=== PATIENT | male | born 1975 | race Caucasian/White ===

== ENCOUNTER 2017-06-01 19:40 | Emergency (ER) | payer OTHER, MEDICAID ==
[~2017-06-01] VITALS: Ht 180.3 cm; Wt 107.0 kg
[~2017-06-01 19:40] MED LIST: ASPIR-LOW81 MG PO; CARDIZEM CD 12120 MG OR; LORTAB 5/500 501 TAB PO; METOPROLOL25 MG PO; NOMEDS
--- NOTE | 2017-06-01 20:30 | Urgent Treatment Center Report ---
History of Present Issue Date/Time Seen by Provider 06/01/172014 Visit Reason Pt arrived:Walked Presenting Problem:PT STATES WHILE HE WAS AT WORK, TWO STEEL SLABS FELL ON HIS RIGHT SPICER SCRAPING IT AT 1430 Location if Accident:Work Onset of symptoms date/time:06/01/1705/10/1430 or onset unknown for: Have you (or family members/close friends) recently traveled outside the [place]? N If Yes, where/when: Have you had exposure to infectious disease within the past month? TB? Other? Specify: c/o right spicer pain. reports while at work today two steel metal roof frames fell hitting bilateral knees and sliding down right anterior spicer. Reports abrasion to right spicer. Denies leg being trapped under frame. "I remained standing the entire time. The edge just slid down my leg". No treatment prior to arrival. Has not irrigated or cleaned wound. Last tetanus approx 6 years ago. Has discussed injury with HR. Not sure if drug screen is required but wants one "just in case". Aware if work doesn't cover cost, he may be responsible and they are typically several hundred dollars. Pt states + understanding and wants the drug screen. Source patient Exam Limitations no limitations ALLERGIES Coded Allergies: No Known Allergies (04/15/17) Home Medications Active Scripts Metoprolol Tartrate (Metoprolol) 25 MG PO BID #180 TAB Ref 1 Prov: 03/03/17 History Medical History General CAD? No Angina: No [place]: No Hypertension? Yes Hyperlipidemia? No CHF? No DVT? No PE? No COPD? No Asthma? Yes Anemia? No GERD? Yes Gastric ulcers? No GI Bleed? No Hernia? No Thyroid Problems? No Hypothyroidism? No CVA? No Seizures? No Diabetes? No Renal Insuffiency? No UTI? No Stones? No BPH? No GB Disease: No Nephritic Syndrome? No Asplenia? No Hepatitis? No Sickle Cell Disease? No Arthritis? No Migraines? No Cataracts? No Glaucoma? No MRSA? No HIV? No TB? No Anxiety? No Depression? No Cancer? No More? Yes Additional hx: AFIB Immunization HX DT/Tetanus 5-10 Years Ago Pneumonia Refuses Surgical Hx Previous Surgery?Y Appendix CARDIAC CATH/ABLATION Social History Smoking Hx Smoker: Never Smoker Tobacco: No Packs/day N/A Alcohol Alcohol: No Review of Systems All Other Systems Reviewed and Negative Constitutional denies fever, denies weakness Musculoskeletal denies joint pain, denies joint swelling, denies muscle pain, other (leg pain "only at the abrasion) Skin see HPI, change in color (bruising left knee also) Psychiatric/Neurological denies numbness, denies tingling Physical Exam Vital Signs Vital Signs Date Time Temp Pulse Resp B/P Pulse O2 O2 Flow FiO2 Ox Delivery Rate 06/01 2002 98.2 98 18 149/97 97 General Appearance normal appearance, no apparent distress Respiratory Status No: respiratory distress. Cardiovascular no peripheral edema Peripheral Pulses Pulses normal Yes (DP/PT) Back gait abnormality (slight limp favoring right) Extremities normal inspection (astrid ankles and feet), tenderness right anterior spicer surrounding abrasion only, no tenderness astrid knees, astrid ankles, astrid feet or left lower leg, normal ROM astrid knees and ankles Strength 5 Lower Ext (L), 5 Lower Ext (R) Neurologic alert, no motor/sensory deficits Skin ecchymosis left anterior knee, approx 1cm wide x 8-10cm long abrasion right anterior mid spicer Medical Decision Making LABS/Meds/Orders Pt receiving controlled substance in ED? No Results/Orders Current Medication Orders Sig/Lia Start time Last Medication Dose Route Stop Time Status Admin Diphtheria/Pertussis/ 0 .STK-MED ONE 06/01 2116 DC Tetanus Vacc IM Bacitracin Zinc 1 INCH ONCE ONE 06/01 2115 CAN TP 06/01 2116 Diphtheria/Pertussis/ 0.5 ML ONCE ONE 06/01 2115 DC 06/01 Tetanus Vacc IM 06/01 Multi-Ingredient 1 UDP ONCE ONE 06/01 2115 DC 06/01 Ointment TP 06/01 Multi-Ingredient 0 .STK-MED ONE 06/01 2110 DC Ointment TP Orders Procedure Date/time Status WOUND CARE PER NURSE 06/01 2109 Active LOWER LEG-RT 06/01 2014 Active XRAY/CT/US XRAY/CT/US XRAY leg (right) XR interpretation by reviewed by me Xray Results normal/NAD Departure Departure Time of Disposition 2119 Disposition DC Home or Self Care(routine) Clinical Impression Primary Impression: Abrasion, right lower leg, initial encounter Secondary Impressions: Contusion of left knee Qualifiers: Encounter type: initial encounter Qualified Code: S80.02XA - Contusion of left knee, initial encounter Need for Tdap vaccination Work related injury Condition STABLE Referrals Leanne Joyner MD (Family) Sunday for any new, worsening or persistant symptoms. Return to ER/UTC for new or worsening symptoms. Patient Instructions DI for Abrasion, DI for Contusion, Tetanus, Diphtheria, Pertussis (Tdap) Vaccine Additional Instructions * Monitor closely. Outlined redness so that you can monitor easier. FU immediately for new or worsening symptoms ( including but not limited to redness , swelling, red streaking, fever, chills). * Clean with mild soap and water * antibx ointment 2-3x/day * open to air at home, covered if outside or in public * YOU HAD A TDAP (TETANUS/PERTUSSIS) VACCINE TODAY. YOU WILL WANT TO REMEMBER THIS Discharge Counseling Counseled pt/family regarding diagnosis, test results, medications/RX, home care, follow up needs Comments provided with triple antibx ointment packets in clinic at 3539
[2017-06-01 21:45] VITALS: BP 149/97
--- NOTE | 2017-06-02 05:58 | RADIOLOGY REPORT PS360 ---
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 No radio opaque foreign body or soft tissue gas. IMPRESSION: Negative right tib-fib
== END 2017-06-01 21:45 | disposition home or self-care (01) ==
LOC: UTC 19:40
DX: S80.811A Abrasion, right lower leg, initial encounter (principal); I10 Essential (primary) hypertension; W20.8XXA Other cause of strike by thrown, projected or falling object, initial encounter; Y93.89 Activity, other specified; Y92.89 Other specified places as the place of occurrence of the external cause; Y99.0 Civilian activity done for income or pay; Z23 Encounter for immunization; Z79.899 Other long term (current) drug therapy

== ENCOUNTER 2017-06-16 20:14 | Emergency (ER) | payer MEDICAID ==
[~2017-06-16] VITALS: Ht 180.3 cm; Wt 108.4 kg
--- NOTE | 2017-06-16 20:39 | Urgent Treatment Center Report ---
History of Present Issue Date/Time Seen by Provider 06/16/172024 Visit Reason Pt arrived:Walked Presenting Problem:PT C/O POSSIBLE PINK EYE OF RT EYE AFTER BEING EXPOSED Location if Accident: Onset of symptoms date/time:/ or onset unknown for:MEDICAL HX UNKNOWN Have you (or family members/close friends) recently traveled outside the [place]? N If Yes, where/when: Have you had exposure to infectious disease within the past month? TB? Other? Specify: c/o "I know pink eye". Son w/ pink eye less then one week ago. Pt noticed right eye itching yesterday. Woke up this morning with right eye "slightly" irritated. As day progressed, irritation, burning and redness getting worse. Thick green drainage now. Blurred vision w/ drainage present but not once washed away. No fever, headaches. Hasn't taken or tried anything "other than keeping eye clean". Source patient Exam Limitations no limitations ALLERGIES Coded Allergies: No Known Allergies (04/15/17) Home Medications Active Scripts Metoprolol Tartrate (Metoprolol) 25 MG PO BID #180 TAB Ref 1 Prov: 03/03/17 History Medical History General CAD? No Angina: No [place]: No Hypertension? Yes Hyperlipidemia? No CHF? No DVT? No PE? No COPD? No Asthma? Yes Anemia? No GERD? Yes Gastric ulcers? No GI Bleed? No Hernia? No Thyroid Problems? No Hypothyroidism? No CVA? No Seizures? No Diabetes? No Renal Insuffiency? No UTI? No Stones? No BPH? No GB Disease: No Nephritic Syndrome? No Asplenia? No Hepatitis? No Sickle Cell Disease? No Arthritis? No Migraines? No Cataracts? No Glaucoma? No MRSA? No HIV? No TB? No Anxiety? No Depression? No Cancer? No More? Yes Additional hx: AFIB Immunization HX DT/Tetanus Unknown Pneumonia Refuses Surgical Hx Previous Surgery?Y Appendix CARDIAC CATH/ABLATION Social History Smoking Hx Smoker: Never Smoker Tobacco: No Packs/day N/A Alcohol Alcohol: No Review of Systems All Other Systems Reviewed and Negative Constitutional see HPI, denies malaise Eyes see HPI, denies inflammation, denies photophobia, denies contact lenses, denies glasses ENT denies: nose discharge, nose congestion. Respiratory denies cough Skin denies lesions, denies lumps, denies rash Psychiatric/Neurological see HPI Physical Exam Vital Signs Vital Signs Date Time Temp Pulse Resp B/P Pulse O2 O2 Flow FiO2 Ox Delivery Rate 06/16 2023 97.7 98 16 127/86 98 General Appearance normal appearance, no apparent distress Eye Exam - right eye PERRL, right eye EOMI, left eye normal exam Comment right eye normal x/ sclera and lower conjuctiva injected. evidence of green crusting on lower lid Ear, Nose, Throat normal ENT inspection Respiratory Status No: respiratory distress. Cardiovascular no peripheral edema Neurologic alert, oriented x 3 Skin normal color, warm/dry Medical Decision Making LABS/Meds/Orders Pt receiving controlled substance in ED? No Results/Orders Current Medication Orders Sig/Lia Start time Last Medication Dose Route Stop Time Status Admin Neomycin/Polymyxin/ 0.1 ML ONCE ONE 06/16 2045 AC Gramicidin OP 06/16 2046 Departure Departure Time of Disposition 2035 Disposition DC Home or Self Care(routine) Clinical Impression Primary Impression: Conjunctivitis, right eye Qualifiers: Conjunctivitis type: acute Acute conjunctivitis type: unspecified Qualified Code: H10.31 - Unspecified acute conjunctivitis, right eye Condition STABLE Referrals Leanne Joyner MD (Family) * If this is bacterial, you should notice improvement typically within 24 hours but at least within 48 hours after starting antibiotic. If not, you need to follow up with your family doctor or better yet, an eye care provider such as Dr. Deutsch at [facility] Patient Instructions DI for Conjunctivitis Additional Instructions * Start antibiotic drops ZARI and use them as ordered at least 48 hours after symptoms resolve * Warm compresses * Bacterial conjunctivitis (pink eye) is contagious and spreads easily. Try to avoid touching the eye and if so, wash hands immediately. Frequently disinfecting surfaces the patient touches will help decrease the spread of conjunctivitis. * If this is bacterial, you should notice improvement typically within 24 hours but at least within 48 hours after starting antibiotic. If not, you need to follow up with your family doctor or better yet, an eye care provider. Discharge Counseling Counseled pt/family regarding diagnosis, medications/RX, home care, follow up needs Comments All pharmacies closed. pt sent home w/ 10ml bottle neomycin, polymyxin b, GRAMICIDEN w/ instructions to use 1-2 drops every 4hours x 7-10 days. at 2043
[2017-06-16 20:49] VITALS: BP 127/86
== END 2017-06-16 20:50 | disposition home or self-care (01) ==
LOC: UTC 20:14
DX: H10.31 Unspecified acute conjunctivitis, right eye (principal); I10 Essential (primary) hypertension; J45.909 Unspecified asthma, uncomplicated; K21.9 Gastro-esophageal reflux disease without esophagitis

== ENCOUNTER 2017-06-18 19:02 | Emergency (ER) | payer MEDICAID ==
[~2017-06-18] VITALS: Ht 180.3 cm; Wt 95.3 kg
[2017-06-18] MEDS ORDERED: CORTISPORI7.5 ML/BO1 OP (19:16)
[2017-06-18 20:13] VITALS: BP 127/86
--- NOTE | 2017-06-18 20:13 | Urgent Treatment Center Report ---
History of Present Issue Date/Time Seen by Provider 06/18/172005 Visit Reason Pt arrived:Walked Presenting Problem:POSSIBLE PINK EYE Location if Accident: Onset of symptoms date/time:/ or onset unknown for:MEDICAL HX UNKNOWN Have you (or family members/close friends) recently traveled outside the [place]? N If Yes, where/when: Have you had exposure to infectious disease within the past month? TB? Other? Specify: State that he was seen and treated here in the [facility] 2-3 days ago for [place] eye and given antibiotic eye drops State that he has not seen any improvement State that he has also began to have runny nose and feeling cold like symptoms and not sure if that could be what is going on. ALLERGIES Coded Allergies: No Known Allergies (04/15/17) Home Medications Reported Medications Bcukalpx-Bdhmqgkwm-Hc (Iijthbbc-Ossp-Bk Eye Drops) 1 DROP OP TID History Medical History General CAD? No Angina: No [place]: No Hypertension? Yes Hyperlipidemia? No CHF? No DVT? No PE? No COPD? No Asthma? Yes Anemia? No GERD? Yes Gastric ulcers? No GI Bleed? No Hernia? No Thyroid Problems? No Hypothyroidism? No CVA? No Seizures? No Diabetes? No Renal Insuffiency? No UTI? No Stones? No BPH? No GB Disease: No Nephritic Syndrome? No Asplenia? No Hepatitis? No Sickle Cell Disease? No Arthritis? No Migraines? No Cataracts? No Glaucoma? No MRSA? No HIV? No TB? No Anxiety? No Depression? No Cancer? No More? Yes Additional hx: AFIB Immunization HX DT/Tetanus Unknown Pneumonia Refuses Surgical Hx Previous Surgery?Y Appendix CARDIAC CATH/ABLATION Social History Smoking Hx Smoker: Never Smoker Tobacco: No Packs/day N/A Alcohol Alcohol: No Review of Systems All Other Systems Reviewed and Negative Eyes drainage, other (conjunctiva red) Physical Exam Vital Signs Vital Signs Date Time Temp Pulse Resp B/P Pulse O2 O2 Flow FiO2 Ox Delivery Rate 06/18 1914 98.0 89 20 127/86 97 General Appearance normal appearance, WD/WN, no apparent distress Eye Exam - right eye other, bilateral eye PERRL, bilateral eye EOMI Ear, Nose, Throat clear drainage from nose, throat irritated Respiratory Status Yes: trachea midline, chest symmetrical, non tender chest. No: respiratory distress. 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 Patient educated that if conjunctivitis is viral considering new onset of sinus pain and pressure Antibiotic drops may not work if viral. Medical Decision Making LABS/Meds/Orders Pt receiving controlled substance in ED? No Departure Departure Time of Disposition 2010 Disposition DC Home or Self Care(routine) Clinical Impression Primary Impression: Viral illness Secondary Impressions: Viral conjunctivitis Condition STABLE Referrals Leanne Joyner MD (Family) Patient Instructions DI for Conjunctivitis, DI for Viral Upper Respiratory Infection -- Adult Additional Instructions Follow up with Family doctor if symptoms persist Warm compresses to eye and clean with baby shampoo and wash rag Antibiotic drops will not help for viral infections REturn if needed Discharge Counseling Counseled pt/family regarding diagnosis, home care, follow up needs at 2013
--- NOTE | 2017-06-18 20:13 | Urgent Treatment Center Report ---
History of Present Issue Date/Time Seen by Provider 06/18/172005 Visit Reason Pt arrived:Walked Presenting Problem:POSSIBLE PINK EYE Location if Accident: Onset of symptoms date/time:/ or onset unknown for:MEDICAL HX UNKNOWN Have you (or family members/close friends) recently traveled outside the [place]? N If Yes, where/when: Have you had exposure to infectious disease within the past month? TB? Other? Specify: State that he was seen and treated here in the [facility] 2-3 days ago for [place] eye and given antibiotic eye drops State that he has not seen any improvement State that he has also began to have runny nose and feeling cold like symptoms and not sure if that could be what is going on. ALLERGIES Coded Allergies: No Known Allergies (04/15/17) Home Medications Reported Medications Qebynaxr-Yosktcloz-Cu (Lqfxcokm-Ykeg-An Eye Drops) 1 DROP OP TID History Medical History General CAD? No Angina: No [place]: No Hypertension? Yes Hyperlipidemia? No CHF? No DVT? No PE? No COPD? No Asthma? Yes Anemia? No GERD? Yes Gastric ulcers? No GI Bleed? No Hernia? No Thyroid Problems? No Hypothyroidism? No CVA? No Seizures? No Diabetes? No Renal Insuffiency? No UTI? No Stones? No BPH? No GB Disease: No Nephritic Syndrome? No Asplenia? No Hepatitis? No Sickle Cell Disease? No Arthritis? No Migraines? No Cataracts? No Glaucoma? No MRSA? No HIV? No TB? No Anxiety? No Depression? No Cancer? No More? Yes Additional hx: AFIB Immunization HX DT/Tetanus Unknown Pneumonia Refuses Surgical Hx Previous Surgery?Y Appendix CARDIAC CATH/ABLATION Social History Smoking Hx Smoker: Never Smoker Tobacco: No Packs/day N/A Alcohol Alcohol: No Review of Systems All Other Systems Reviewed and Negative Eyes drainage, other (conjunctiva red) Physical Exam Vital Signs Vital Signs Date Time Temp Pulse Resp B/P Pulse O2 O2 Flow FiO2 Ox Delivery Rate 06/18 1914 98.0 89 20 127/86 97 General Appearance normal appearance, WD/WN, no apparent distress Eye Exam - right eye other, bilateral eye PERRL, bilateral eye EOMI Ear, Nose, Throat clear drainage from nose, throat irritated Respiratory Status Yes: trachea midline, chest symmetrical, non tender chest. No: respiratory distress. 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 Patient educated that if conjunctivitis is viral considering new onset of sinus pain and pressure Antibiotic drops may not work if viral. Medical Decision Making LABS/Meds/Orders Pt receiving controlled substance in ED? No Departure Departure Time of Disposition 2010 Disposition DC Home or Self Care(routine) Clinical Impression Primary Impression: Viral illness Secondary Impressions: Viral conjunctivitis Condition STABLE Referrals Leanne Joyner MD (Family) Patient Instructions DI for Conjunctivitis, DI for Viral Upper Respiratory Infection -- Adult Additional Instructions Follow up with Family doctor if symptoms persist Warm compresses to eye and clean with baby shampoo and wash rag Antibiotic drops will not help for viral infections REturn if needed Discharge Counseling Counseled pt/family regarding diagnosis, home care, follow up needs at 2013
== END 2017-06-18 20:14 | disposition home or self-care (01) ==
LOC: UTC 19:02
DX: B34.9 Viral infection, unspecified (principal); H10.31 Unspecified acute conjunctivitis, right eye; J45.909 Unspecified asthma, uncomplicated; I48.2 Chronic atrial fibrillation; K21.9 Gastro-esophageal reflux disease without esophagitis; I10 Essential (primary) hypertension

== ENCOUNTER → 2017-06-20 | Outpatient (CLI) | payer MEDICAID ==
[~2017-06-20] MED LIST changes: +CORTISPORI7.5 ML/BO1 OP
--- NOTE | 2017-06-21 16:22 | RADIOLOGY REPORT PS360 ---
PROCEDURE: 2-D M-mode and color Doppler study INDICATIONS FOR THE TEST: Chest pain COPD Heart Murmur Tobacco Smokingex Palpitations+ Fatigue Syncope Edema Hypertension Diabetes Mellitus Rheumatic Fever SOB JIMENEZ+Obesity Hyperlipidemia Family History HD+ Additional History Afib, Ablation 06/2016, Ablation 03/2017 for SVT, GERD, Asthma PATIENT INFORMATION HEIGHT: 71 WEIGHT: 239 GENDER: Male B/P: 127/89 2-D/M-MODE INTERPRETATION: 2-D MEASUREMENTS OBSERVED VALUES IN CMS Right Ventricular Dimension (RVDd) 2.5 Interventricular Septum (Thickness)(IVsd) 1.0 Left Ventricular Internal Dimensions(LVIDd) 5.0 Left Ventricular Posterior Wall (Thickness)(LVPWd) 1.0 Aortic Root 3.6 Aortic Cusp Separation 2.4 Left Atrial Dimensions (LAD) 3.7 2D 1. Left atrium is normal size, left ventricle is normal size, there is no concentric left ventricular hypertrophy, visually estimated ejection fraction 55% with no obvious regional wall motion abnormality. 2. The right atrium and right ventricle are normal size and contractility. 3. The aortic, mitral and tricuspid valve are grossly normal. 4. The pulmonic valve is poorly visualized. 5. No significant pericardial effusion noted. DOPPLER INTERROGATION: Doppler interrogation of the aortic, mitral and tricuspid valvular presence of trace mitral and tricuspid regurgitation, diastolic parameters are within normal range. CONCLUSION: 1. Normal left ventricular size, visually estimated ejection fraction 55% with no obvious regional wall motion abnormality. Diastolic parameters are within normal range. 2. Trace mitral and tricuspid regurgitation. 3. No significant pericardial effusion noted.
== END ==
LOC: RT 15:01
DX: R00.0 Tachycardia, unspecified (principal); I48.91 Unspecified atrial fibrillation; I47.1 Supraventricular tachycardia; I42.9 Cardiomyopathy, unspecified; Z98.890 Other specified postprocedural states

== ENCOUNTER 2017-06-26 21:32 | Emergency (ER) | payer MEDICAID ==
[~2017-06-26] VITALS: Ht 180.3 cm; Wt 108.4 kg
--- NOTE | 2017-06-26 22:45 | Emergency Room Report ---
History of Present Illness Time Seen by 2130 Presenting Problem in Triage Pt arrived:Walked Presenting Problem:PINK EYE IN RIGHT EYE TREATED IN [facility] AND HAS NOW MIGRATED TO LEFT Onset of symptoms date/time:06/26/1712/08/2099 or onset unknown for: Treatment Prior to Arrival: PREVIOUS EXAM AND SUCCESSFUL TREATMENT OF PINK IN THE RIGHT EYE TODAY WITH GELATONOUS CLEAR DISCHARGE AND PAIN IN LEFT EYE. 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 N Clinical Suspician of Infection? Y Mental Status: 1 - Regular (Normal Baseline) Sepsis Risk:Low Sepsis Risk Have you (or family members/close friends) recently traveled outside the [place]? N If Yes, where/when: Have you had exposure to infectious disease within the past month? N TB? Other? Specify: Source patient, RN notes reviewed, old records Exam Limitations no limitations Comment pt with pink eye with neosporin gtts and tonight with reddness and pain and photophobia Cardiac Chest Pain Chest pain indicative of cardiac No Timing/Duration this evening Severity moderate ALLERGIES Coded Allergies: No Known Allergies (04/15/17) Home Medications Reported Medications Syskhdkt-Opdttsore-Rg (Ueehexzv-Pbdb-Ps Eye Drops) 1 DROP OP TID History Medical History General CAD? No Angina: No [place]: No Hypertension? Yes Hyperlipidemia? No CHF? No DVT? No PE? No COPD? No Asthma? Yes Anemia? No GERD? Yes Gastric ulcers? No GI Bleed? No Hernia? No Thyroid Problems? No Hypothyroidism? No CVA? No Seizures? No Diabetes? No Renal Insuffiency? No End Stage Renal Disease? No UTI? No Stones? No BPH? No GB Disease: No Nephritic Syndrome? No Asplenia? No Hepatitis? No Sickle Cell Disease? No Arthritis? No Migraines? No Cataracts? No Glaucoma? No MRSA? No HIV? No TB? No Anxiety? No Depression? No Cancer? No More? Yes Additional hx: AFIB Immunization Hx DT/Tetanus Unknown Pneumonia Refuses Surgical Hx Previous Surgery?Y Appendix CARDIAC CATH/ABLATION Social History Smoking Hx Smoker: Former Smoker Tobacco: No Packs/day N/A Are you/the child exposed to second-hand smoke: No Alcohol Alcohol: No Drugs none Additionial History Additional History hx of visual loss llt eye Review of Systems All Other Systems Reviewed and Negative Constitutional denies fever Eyes see HPI, foreign body sensation, photophobia, denies drainage, denies contact lenses, denies glasses ENT denies: ear discharge. Respiratory denies cough, denies shortness of breath Cardiovascular denies chest pain, denies syncope Gastrointestinal denies abdominal pain, denies diarrhea, denies vomiting Genitourinary denies: dysuria, frequency, hesitancy, hematuria. Musculoskeletal denies back pain, denies joint pain, denies joint swelling, denies neck pain Skin denies rash Psychiatric/Neurological denies headache, denies seizure Physical Exam Vital Signs Vital Signs Date Time Temp Pulse Resp B/P Pulse O2 O2 Flow FiO2 Ox Delivery Rate 06/260 83 14 131/83 97 06/267 97.9 94 14 143/97 98 - WBC >12,000 or <4,000 or 10% bands? 2 or more SIRS Criteria Met? B/P:131/83 MAP:112 Creatinine >2.0? UA output<0.5ml/kg/hr for 2 hrs? Platelet count >100,000? Lactate >2.0mmol/1? INR >1.2 or PTT > than 60 sec? Evidence of Organ Dysfunction? Provider documented clinical suspician of infection? Y Sepsis Criteria Count: 1 Sepsis Risk: Low Sepsis Risk General Appearance no apparent distress Eye Exam - left eye corneal abrasion, bilateral eye PERRL, bilateral eye EOMI Ear, Nose, Throat normal ENT inspection Neck supple Respiratory Status No: respiratory distress. 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 No Procedures Eye Procedure Eye Procedure Risks/benefits discussed with pt/guardian? Yes Tetracaine Drops Administered left eye Fluorescein Stick(s) Used left eye Slit lamp exam No Antibiotic Ointment/Drps Admin left eye Departure Departure Time of Disposition 2234 Disposition DC Home or Self Care(routine) Clinical Impression Primary Impression: Corneal abrasion, left Qualifiers: Encounter type: initial encounter Qualified Code: S05.02XA - Injury of conjunctiva and corneal abrasion without foreign body, left eye, initial encounter Secondary Impressions: Iritis of left eye Condition STABLE Referrals [facility] Patient Instructions DI for Corneal Abrasion Additional Instructions use meds and see eye center in am Discharge Counseling Counseled pt/family regarding diagnosis, medications/RX, follow up needs ED Critical Care Critical Care No at [id number]
--- NOTE | 2017-06-26 22:45 | Emergency Room Report ---
History of Present Illness Time Seen by 2130 Presenting Problem in Triage Pt arrived:Walked Presenting Problem:PINK EYE IN RIGHT EYE TREATED IN [facility] AND HAS NOW MIGRATED TO LEFT Onset of symptoms date/time:06/26/1712/08/2099 or onset unknown for: Treatment Prior to Arrival: PREVIOUS EXAM AND SUCCESSFUL TREATMENT OF PINK IN THE RIGHT EYE TODAY WITH GELATONOUS CLEAR DISCHARGE AND PAIN IN LEFT EYE. 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 N Clinical Suspician of Infection? Y Mental Status: 1 - Regular (Normal Baseline) Sepsis Risk:Low Sepsis Risk Have you (or family members/close friends) recently traveled outside the [place]? N If Yes, where/when: Have you had exposure to infectious disease within the past month? N TB? Other? Specify: Source patient, RN notes reviewed, old records Exam Limitations no limitations Comment pt with pink eye with neosporin gtts and tonight with reddness and pain and photophobia Cardiac Chest Pain Chest pain indicative of cardiac No Timing/Duration this evening Severity moderate ALLERGIES Coded Allergies: No Known Allergies (04/15/17) Home Medications Reported Medications Jifgzmqv-Hsrnpdkkc-St (Gmrlhdwe-Ojul-Qm Eye Drops) 1 DROP OP TID History Medical History General CAD? No Angina: No TN: No Hypertension? Yes Hyperlipidemia? No CHF? No DVT? No PE? No COPD? No Asthma? Yes Anemia? No GERD? Yes Gastric ulcers? No GI Bleed? No Hernia? No Thyroid Problems? No Hypothyroidism? No CVA? No Seizures? No Diabetes? No Renal Insuffiency? No End Stage Renal Disease? No UTI? No Stones? No BPH? No GB Disease: No Nephritic Syndrome? No Asplenia? No Hepatitis? No Sickle Cell Disease? No Arthritis? No Migraines? No Cataracts? No Glaucoma? No MRSA? No HIV? No TB? No Anxiety? No Depression? No Cancer? No More? Yes Additional hx: AFIB Immunization Hx DT/Tetanus Unknown Pneumonia Refuses Surgical Hx Previous Surgery?Y Appendix CARDIAC CATH/ABLATION Social History Smoking Hx Smoker: Former Smoker Tobacco: No Packs/day N/A Are you/the child exposed to second-hand smoke: No Alcohol Alcohol: No Drugs none Additionial History Additional History hx of visual loss llt eye Review of Systems All Other Systems Reviewed and Negative Constitutional denies fever Eyes see HPI, foreign body sensation, photophobia, denies drainage, denies contact lenses, denies glasses ENT denies: ear discharge. Respiratory denies cough, denies shortness of breath Cardiovascular denies chest pain, denies syncope Gastrointestinal denies abdominal pain, denies diarrhea, denies vomiting Genitourinary denies: dysuria, frequency, hesitancy, hematuria. Musculoskeletal denies back pain, denies joint pain, denies joint swelling, denies neck pain Skin denies rash Psychiatric/Neurological denies headache, denies seizure Physical Exam Vital Signs Vital Signs Date Time Temp Pulse Resp B/P Pulse O2 O2 Flow FiO2 Ox Delivery Rate 06/260 83 14 131/83 97 06/267 97.9 94 14 143/97 98 - WBC >12,000 or <4,000 or 10% bands? 2 or more SIRS Criteria Met? B/P:131/83 MAP:112 Creatinine >2.0? UA output<0.5ml/kg/hr for 2 hrs? Platelet count >100,000? Lactate >2.0mmol/1? INR >1.2 or PTT > than 60 sec? Evidence of Organ Dysfunction? Provider documented clinical suspician of infection? Y Sepsis Criteria Count: 1 Sepsis Risk: Low Sepsis Risk General Appearance no apparent distress Eye Exam - left eye corneal abrasion, bilateral eye PERRL, bilateral eye EOMI Ear, Nose, Throat normal ENT inspection Neck supple Respiratory Status No: respiratory distress. 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 No Procedures Eye Procedure Eye Procedure Risks/benefits discussed with pt/guardian? Yes Tetracaine Drops Administered left eye Fluorescein Stick(s) Used left eye Slit lamp exam No Antibiotic Ointment/Drps Admin left eye Departure Departure Time of Disposition 2234 Disposition DC Home or Self Care(routine) Clinical Impression Primary Impression: Corneal abrasion, left Qualifiers: Encounter type: initial encounter Qualified Code: S05.02XA - Injury of conjunctiva and corneal abrasion without foreign body, left eye, initial encounter Secondary Impressions: Iritis of left eye Condition STABLE Referrals [facility] Patient Instructions DI for Corneal Abrasion Additional Instructions use meds and see eye center in am Discharge Counseling Counseled pt/family regarding diagnosis, medications/RX, follow up needs ED Critical Care Critical Care No at 1692
[2017-06-26 22:51] VITALS: BP 131/83
--- OUTSIDE RECORDS SUMMARY | 2017-07-05 11:10 | External Medical Summary Rpt | CCD ---
Author Author , ELIEZER Organization ELIEZER Address Unknown Phone [email or web address] Care Team Providers Care Wallpaper Consultant Name Role Phone SALTER TER, SALTER TER Unavailable Unavailable BESSON MEHRDAD, BESSON Unavailable Unavailable MEHRDAD CAMPBELL, CAMPBELL Unavailable Unavailable CAMPBELL ALL, CAMPBELL ALL Unavailable Unavailable AIDEE, AIDEE Unavailable Unavailable AIDEE THO, Unavailable Unavailable AIDEE THO CROWDY CRI, CROWDY Unavailable Unavailable CRI ALFREDO NGUYEN, Unavailable Unavailable ALFREDO NGUYEN FALLUJI, FALLUJI Unavailable Unavailable [facility], [facility] LEDESMA, ELDESMA Unavailable Unavailable FRYMAN, FRYMAN Unavailable Unavailable JR JERROD, JERROD, Unavailable Unavailable JR BEBETO ELIZABETH, BEBETO Unavailable Unavailable ELIZABETH [facility] Unavailable Unavailable INC, [facility] Unavailable Unavailable HOSPITAL P, [facility] P HEEB CHR, HEEB CHR Unavailable Unavailable [facility], Unavailable Unavailable [facility], Unavailable Unavailable [facility] Unavailable Unavailable [facility], [facility] Unavailable Unavailable [facility], [facility] LOJA MEHRDAD, LOJA MEHRDAD Unavailable Unavailable LOYD JR DWI, LOYD Unavailable Unavailable JR DWI MULBERRY KIMBERLYN, Unavailable Unavailable MULBERRY KIMBERLYN CHANDLER [facility], Unavailable Unavailable [facility], Unavailable Unavailable [facility], [facility] RICE ARLINE, RICE ARLINE Unavailable Unavailable SCIFRES, SCIFRES Unavailable Unavailable SCIFRES, SCIFRES Unavailable Unavailable TONEY MAT, Unavailable Unavailable TONEY MAT PATINO, PATINO Unavailable Unavailable SOTINGEANU MORENO, Unavailable Unavailable SOTINGEANU MORENO [facility] Unavailable Unavailable [facility]IC[facility], [facility] CADENCE VILA Unavailable Unavailable [facility] Unavailable Unavailable DEPT [facility] LUIS ARMANDO [facility] Unavailable Unavailable DEPT [facility], [facility] DEPT LUIS ARMANDO WINTER, WINTER Unavailable Unavailable Purpose Continuity of Care Document - 09-07-2015 through 2016 Problems Code Diagnosis DOS Provider Status L237 ALLERGIC 07-23-2017 [facility]CT [facility] DERMATITIS INC D/T PLANTS EXCP FOOD 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 03-29-2017 ST CULAR [facility]YCARDIA [facility] L31291 UNSPECIFIED 03-08-2017 [facility] ASTHMA [facility] UNCOMPLICAT INC ED Z8679 PERSONAL 03-08-2017 [facility] HISTORY OTH [facility] DISEASES INC CIRCULATORY SYSTEM I4891 UNSPECIFIED 03-03-2017 [facility] N R000 TACHYCARDIA 03-03-2017 [facility]PEC[facility] R079 CHEST PAIN 03-03-2017 [facility] I00685 REGULAR 11-24-2016 SCIFRES ASTIGMATISM BILATERAL I517 CARDIOMEGAL 09-07-2016 [place] [facility] Z23 ENCOUNTER 09-05-2016 [facility] IMMUNIZATIO HLTH DEPT N LUIS ARMANDO R110 NAUSEA 09-02-2016 [facility] J069 ACUTE UPPER 08-30-2016 [facility] RESPIRATORY INFECTION UNSPECIFIED I480 PAROXYSMAL 08-24-2016 ST ATRIAL QUE FIBRILLATIO PHYSICIANS N Z6831 BODY MASS 08-24-2016 ST INDEX BMI QUE 31.0-31.9 PHYSICIANS ADULT L18961 OTHER 08-24-2016 SPECIFIED QUE POSTPROCEDU PHYSICIANS [facility] STATES Z62149 PRIMARY 08-21-2016 [facility] OSTEOARTHRI [facility] TIS LEFT IMAGING ASS WRIST G54473 PAIN IN 08-21-2016 [facility] LEFT W[facility]ST [facility] N70773 OTHER 06-15-2016 [facility] MUSCLE [facility] SPASM 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 06-15-2016 [facility] AL JUNCTION [facility]ATES SYNDROME TIETZE J449 CHRONIC 05-25-2016 [facility] OBSTRUCTIVE PHYSICIANS PULMONARY GROUP DISEASE UNS R9439 ABNORMAL 05-22-2016 [facility] RESULT OT [facility] CARDIOVASCU INC LR FUNCTION STUDY I4892 UNSPECIFIED 05-16-2016 [facility] MONTAGUE FLUTTER PLLC Z7901 LONG-TERM 05-16-2016 [facility] CURRENT USE [facility] P ANTICOAGULA NTS B73530 PERSONAL 05-16-2016 [facility] HISTORY OF [facility] P DEPENDENCE I5189 OTHER 05-11-2016 [facility] ILL-DEFINED PHYSICIANS HEART GROUP DISEASES H109 UNSPECIFIED 04-29-2016 [facility] PH[facility]IAN CONJUNCTIVI GROUP TIS I509 HEART 04-19-2016 [place] [facility] FAILURE [facility] UNSPECIFIED FOUNDATION P80578 PAIN IN 02-18-2016 [facility] LEFT LOWER MEDICAL LEG [facility] D492 NEOPLASM OF 02-15-2016 [facility] UNS ASSOCIATES BEHAVIOR BONE SOFT TISSUE & SKIN M34566 PAIN IN 01-14-2016 [facility]NEE [facility] IM[facility] ASS U51510 PAIN IN 01-14-2016 [facility] LEFT ANKLE [facility]ICAL IM[facility]ING ASS G99300 PAIN IN 12-14-2015 [facility] LEFT FOOT [facility]ICAL IM[facility] ASS M7989 OTHER 12-14-2015 [facility] SPECIFIED MEDICAL SOFT TISSUE IMAGING ASS DISORDERS [id number] CONTUSION 12-14-2015 [facility] OF LEFT PHYSICIANS, ANKLE PLLC INITIAL ENCOUNTER A06180W UNSPECIFIED 12-14-2015 [facility] INJURY [facility]ICAL LEFT ANKLE IMAGING ASS INITIAL ENCOUNTER K05637V UNSPECIFIED 12-14-2015 [facility] INJURY [facility]ICAL LEFT FOOT IMAGING ASS INITIAL ENCOUNTER Medications Na ND Rx Da Fi Fi Am Da Di Ph RX Ph St me C No te ll ll ou ys ag ar # ys at rm s nt no ma ic us Or Da si cy ia de te s n re d ME 57 06 07 18 90 00 WA Ac TO 66 -1 -0 0. 00 L- ti NH 40 0- 7- 00 07 MA ve OL 50 20 20 0 49 RT OL 65 17 17 27 8 68 PH TA AR RT MA RA CY TE #5 25 91 MG TA B SO 00 02 03 60 30 00 EA Ac TA 18 -0 -[address] ti LO 50 4- 3- 00 00 SI ve L 17 20 20 46 DE 80 10 17 17 34 1 78 PH MG AR MA TA CY BL ET OF CY NT HI AN A IN C SO 00 12 02 60 30 00 EA Ac TA 18 -3 -[address] ti LO 50 0- 3- 00 00 SI ve L 17 20 20 46 DE 80 10 16 17 34 1 78 PH MG AR MA TA CY BL ET OF CY NT HI AN A IN C AM 16 01 02 20 10 00 EA Ac OX 71 -1 -[address] ti IC 40 1- 3- 00 00 SI ve IL 29 20 20 47 DE LI 90 17 17 20 N 4 84 PH 50 AR 0 MA MG CY CA OF PS CY UL NT E HI AN A IN C SO 00 12 01 60 30 00 EA Ac TA 18 -0 -[address] ti LO 50 1- 9- 00 00 SI ve L 17 20 20 46 DE 80 10 16 17 34 1 78 PH MG AR MA TA CY BL ET OF CY NT HI AN A IN C Immunization Name Date Rout CVX Reac Dose Comm Prov Is Faci e tion ent ider Refu lity Give sed n IIV4 12-1 158 [facility] No [facility] 3-20 O O VACC 16 [address] RICT RICT SPLI T HLTH HLTH VIRU S DEPT DEPT 0.5 LUIS ARMANDO LUIS ARMANDO ML DOS FOR IM USE Procedures Procedure DOS Code Location Performer Comment UNCLASSIF J3490 [facility] STALLWORTH IED DRUGS 7 [facility] INC INC THERAPEUT 55659 [facility] STALLWORTH IC 7 [facility] PROPHYLAC INC INC TIC/DX INJECTION SUBQ/IM ANES 57596 ANESTHESI CADENCE CARDIAC 7 A GROUP ELECTROPH PRACTICE YSIOL STDY W/RF ABLATION PROGRAMME 06995 ST AIDEE D STIMJ & 7 QUE PACG AFTER IV PHYSICIAN DRUG NFS S EPHYS 96014 ST A[facility]EE EVAL 7 QUE W/ABLATIO N PHYSICIAN SUPRAVENT S ARRHYTHMI A INTRACARD 65564 ST A[facility]EE IAC 7 QUE ELECTROPH YSIOLOGIC PHYSICIAN 3D S MAPPING COMPRE 49240 ST A[facility]EE ELECTROPH 7 QUE YSIOL XM W/LEFT PHYSICIAN ATRIAL S PACNG/REC ECG 69762 [facility] STALLWORTH ROUTINE 7 [facility] ECG INC INC W/LEAST 12 LDS TRCG ONLY W/O I&R ECG 14796 [facility] STALLWORTH ROUTINE 7 [facility] ECG INC INC W/LEAST 12 LDS TRCG ONLY W/O I&R COMPREHEN 24360 [facility] STALLWORTH SIVE 7 [facility] METABOLIC INC INC PANEL CREATINE 60995 [facility] STALLWORTH KINASE 7 [facility] [place] [address] BAS[facility] STALLWORTH INFUSION 7 [facility] THERAPY/P INC INC ROPHYLAXI S /DX 1ST TO 1 HR UNCLASSIF J3490 [facility] STALLWORTH IED DRUGS 7 [facility] INC INC RADIOLOGI 09673 [place] CAMPBELL C 7 MEDICAL EXAMINATI IMAGING ON [place] [address] BAS[facility] STALLWORTH TROPONIN 7 [facility] QUANTITAT INC INC MANUEL BLOOD 26549 [facility] STALLWORTH COUNT 7 [facility] COMPLETE INC INC AUTO&AUTO DIFRNTL WBC ECG 22662 [facility] ELDER, ROUTINE 7 PHYSICIAN JR ECG S, PLLC W/LEAST 12 LDS I&R ONLY CREATINE 19024 [facility] COONON KINASE MB 7 [facility] FRACTION INC INC ONLY OPHTH 16361 [employer] MEDICAL 7 XM&EVAL COMPRE NEW PT 1/> VST ECHO 96078 EDMUND PATINO TTHRC R-T 6 MEDICAL 2D SERV W/WOM-MOD FOUNDATIO E COMPL N SPEC&COLR D IIV4 VACC 30035 [facility] S[facility] VIRUS 0.5 HLTH DEPT HLTH DEPT ML DOS LUIS ARMANDO LUIS ARMANDO FOR IM USE IAADIADOO 59122 FAMILY MULBERRY 6 CARE KIMBERLYN INFLUENZA ASSOCIATE S IAADIADOO 05693 FAMILY MULBERRY 6 CARE KIMBERLYN STREPTOCO ASSOCIATE CCUS S GROUP A BLOOD 08834 FAMILY MULBERRY COUNT 6 CARE KIMBERLYN COMPLETE ASSOCIATE AUTO&AUTO S DIFRNTL WBC COLLECTIO 23282 FAMILY MULBERRY N 6 CARE KIMBERLYN CAPILLARY ASSOCIATE BLOOD S SPECIMEN ECG [address] ST WINTER ROUTINE 6 QUE ECG W/LEAST PHYSICIAN 12 LDS S W/I&R RADEX 18665 [place] ALFREDO WRIST 6 MEDICAL NGUYEN COMPLETE IMAGING MINIMUM 3 ASS VIE[address] INTRACARD 55519 ST A[facility] ECHOCARD 6 QUE THO W/THER/DX PHYSICIAN IVNTJ S INCL IMG S&I ANES 98210 ANESTHESI RICE ARLINE CARDIAC 6 A GROUP ELECTROPH PRACTICE YSIOL STDY W/RF ABLATION INTRACARD 60197 ST A[facility]EE IAC 6 QUE THO ELECTROPH YSIOLOGIC PHYSICIAN 3D S MAPPING EPHYS EVL 78240 ST AIDEE TRNSPTL 6 QUE THO TX ATRIAL FIB PHYSICIAN ISOLAT S PULM VEIN ECG [address] ST HEEB CHR ROUTINE 6 QUE ECG MED CTR W/LEAST 12 LDS I&R ONLY GAS 04296 [facility] STALLWORTH DILUT/WAS 6 [facility] HOUT LUNG INC INC VOL W/WO DISTRIB VENT&[place] [address] BAS[facility] STALLWORTH DIFFUSING 6 [facility] CAPACITY INC INC BRNCDILAT 77967 [facility] STALLWORTH RSPSE 6 [facility] SPMTRY INC INC PRE&POST- BRNCDILAT ADMN ECG 51856 [facility] ROUTINE 6 PHYSICIAN MAT ECG S GROUP W/LEAST 12 LDS I&R ONLY ECG 52933 [facility] ROUTINE 6 PHYSICIAN MAT ECG S GROUP W/LEAST 12 LDS I&R ONLY ECG 84362 [facility] HARP JR ROUTINE [address] [facility] W/LEAST P 12 LDS I&R ONLY RADIOLOGI 40900 [facility] C EXAM 6 MEDICAL CHEST 2 IMAGING VIEWS ASS FRONTAL&L ATERAL CV STRS 95173 [facility] FALLUJI TST 6 PHYSICIAN XERS&/OR S GROUP RX CONT ECG W/O I&R CREATINE 77586 [facility] STALLWORTH KINASE 6 [facility] TOTAL INC INC OBSERVATI 46826 FAMILY ARTEAGA ON/INPATI 6 CARE R H ENT ASSOCIATE HOSPITAL S CARE 50 [place] [address] BAS[facility] STALLWORTH TROPONIN 6 [facility] QUANTITAT INC INC MANUEL CREATINE 12967 BAS[facility] STALLWORTH KINASE MB 6 [facility] FRACTION INC INC ONLY COLLECTIO 97832 BASIM STALLWORTH N VENOUS 6 [facility] BLOOD INC INC VENIPUNCT [facility] G0378 BASIM STALLWORTH OBSERVATI 6 [facility] ON INC INC [facility] G0378 BAS[facility] STALLWORTH OBSERVATI 6 [facility] ON INC INC SERVICE PER HOUR COLLECTIO 00777 BASIM STALLWORTH N VENOUS 6 [facility] HOSP BLOOD INC INC VENIPUNCT URE THYROID 82103 [facility] STALLWORTH HORM 6 [facility] UPTK/THYR INC [place] [address] BAS[facility] STALLWORTH THYROXINE 6 [facility] MEM HOSP TOTAL INC INC RADIOLOGI 12467 [place] ALFREDO C 6 MEDICAL NGUYEN EXAMINATI IMAGING ON CHEST ASS SINGLE VIEW FRONTAL CREATINE 58570 BASIM BASIM KINASE MB 6 [facility] [place] [address] BAS[facility] STALLWORTH THYROID 6 [facility] STIMULATI INC INC NG HORMONE TSH ECG 21739 BAS[facility] WANDA ROUTINE 6 [facility] W/LEAST P 12 LDS I&[place] [address] BASIM BASIM TROPONIN 6 [facility] QUANTITAT INC INC MANUEL BLOOD 35976 BASIM BASMI COUNT 6 [facility] COMPLETE INC INC AUTO&AUTO DIFRNTL WBC ECHO 65208 [facility] TTHRC R-T 6 MEDICAL 2D SERV W/WOM-MOD FOUNDATIO E COMPL N SPEC&COLR D CREATINE 82905 [facility] STALLWORTH KINASE 6 [facility] TOTAL INC INC ECG 57886 [facility] STALLWORTH ROUTINE 6 [facility] ECG INC INC W/LEAST 12 LDS TRCG ONLY W/O I&[place] [address] [facility] STALLWORTH MAGNESIUM 6 [facility] [place] [address] BASIM STALLWORTH PHOSPHORU 6 [facility] S INC INC INORGANIC COMPREHEN 79350 [facility] STALLWORTH SIVE 6 [facility] [place] [address] [place] ALFREDO EXTREMITY 6 MEDICAL NGUYEN NON-VASC IMAGING ASS REAL-TIME IMG LMTD TECHNETIU A9503 [facility] Fontana TC-99M 6 [facility] MEDRONATE INC INC DX UP TO 30 MCI BONE 59460 [place] ALFRED[facility] &/JOINT 6 MEDICAL NGUYEN IMAGING IMAGING WHOLE ASS BODY UNCLASSIF J3490 [facility] STALLWORTH IED DRUGS 6 [facility] INC INC RADEX 10350 [facility] CAMPBE[facility] ALL ANKLE 6 MEDICAL COMPLETE IMAGING MINIMUM 3 ASS VIEWS RADEX 81339 [facility] CAMPBE[facility] ALL FOOT 6 MEDICAL COMPLETE IMAGING MINIMUM 3 ASS VIEWS RADIOLOGI 81178 [place] ALFREDO C 6 MEDICAL NGUYEN EXAMINATI IMAGING ON TIBIA ASS & FIBULA 2 VIEWS Encounters Encounter Start End Date Code Location Performer Type Date OFFICE 88411 [facility] OUTPATIEN 7 7 [facility] T VISIT 5 INC MINUTES HOSPITAL [facility] - 7 7 [facility] OUTPATIEN INC T HOSPITAL [facility] - 7 7 [facility] OUTPATIEN INC T HOSPITAL BASIM - 7 7 [facility] OUTPATIEN INC T EMERGENCY 20683 [place] ELDER, 7 7 PHYSICIAN JR ESCALANTE S, [facility] T VISIT HIGH/URGE NT SEVERITY OFFICE 88160 [facility] FRYMAN OUTPATIEN 6 6 PHYSICIAN T VISIT GROUP 25 MINUTES OFFICE 12165 [facility] MULBERRY OUTPATIEN 6 6 CARE KIMBERLYN T VISIT ASSOCIATE [address]ES [address] [facility] OUTPATIEN 6 6 QUE T VISIT 15 PHYSICIAN MINUTES S OFFICE 07691 [facility] MULBERRY OUTPATIEN 6 6 CARE KIMBERLYN T VISIT ASSOCIATE 15 S MINUTES OFFICE 95960 FAMILY CROWDY OUTPATIEN 6 6 CARE CRI T VISIT ASSOCIATE 15 S MINUTES OFFICE 53744 [facility] TONEY OUTPATIEN 6 6 PHYSICIAN MAT T VISIT S GROUP 40 MINUTES HOSPITAL BASIM - 6 6 [facility] OUTPATIEN INC T OFFICE 21912 [facility] TONEY OUTPATIEN 6 6 PHYSICIAN MAT T VISIT S GROUP 40 MINUTES EMERGENCY 06104 [place] TATE DEPT 6 6 PHYSICIAN ELIZABETH VISIT S, [facility] HIGH SEVERITY& THREAT FUNJ OFFICE 99562 [facility] TONEY OUTPATIEN 6 6 PHYSICIAN MAT T VISIT S GROUP 25 MINUTES OFFICE 61383 [facility] LEDESMA OUTPATIEN 6 6 PHYSICIAN T VISIT GROUP 15 MINUTES EMERGENCY 72971 [facility] QUIROGA DEPT 6 6 PHYSICIAN U MORENO VISIT S, [facility] HIGH SEVERITY& THREAT FUNJ HOSPITAL BASIM - 6 6 [facility] OUTPATIEN INC T OFFICE 29590 [facility] MULBERRY OUTPATIEN 6 6 CARE KIMBERLYN T VISIT ASSOCIATE 15 S MINUTES OFFICE 68037 [facility] MULBERRY OUTPATIEN 6 6 CARE KIMBERLYN T VISIT ASSOCIATE 15 S MINUTES HOSPITAL BASIM - 6 6 [facility] OUTPATIEN INC T EMERGENCY 79619 BAS[facility] 6 6 [facility] DEPARTMEN INC T VISIT LOW/MODER SEVERITY EMERGENCY 89499 [facility] QUIROGA 6 6 PHYSICIAN U MORENO DEPARTMEN S, [facility] T VISIT MODERATE SEVERITY HOSPITAL BASIM - 6 6 [facility] OUTPATIEN INC T OFFICE 94136 FAMILY MULBERRY OUTPATIEN 6 6 CARE KIMBERLYN T VISIT ASSOCIATE 15 S MINUTES OFFICE 94244 [facility] SALTER TER OUTPATIEN 5 5 PHYSICIAN T VISIT S GROUP 10 MINUTES
--- OUTSIDE RECORDS SUMMARY | 2017-07-05 11:10 | External Medical Summary Rpt | CCD ---
Author Author , ELIEZER Organization ELIEZER Address Unknown Phone [email or web address] Team Providers Care Half Sole Fitter Name Role Phone SALTER TER, SALTER TER Unavailable Unavailable BESSON MEHRDAD, BESSON Unavailable Unavailable MEHRDAD CAMPBELL, CAMPBELL Unavailable Unavailable CAMPBELL ALL, CAMPBELL ALL Unavailable Unavailable AIDEE, AIDEE Unavailable Unavailable AIDEE THO, Unavailable Unavailable AIDEE THO CROWDY CRI, CROWDY Unavailable Unavailable CRI ALFREDO NGUYEN, Unavailable Unavailable ALFREDO NGUYEN FALLUJI, FALLUJI Unavailable Unavailable [facility] LEDESMA, LEDESMA Unavailable Unavailable FRYMAN, FRYMAN Unavailable Unavailable JR JERROD, JERROD, Unavailable Unavailable JR BEBETO ELIZABETH, BEBETO Unavailable Unavailable ELIZABETH [facility] Unavailable Unavailable INC, [facility] Unavailable [facility]available HOSPITAL P, [facility] P HEEB CHR, HEEB CHR Unavailable Unavailable [facility], Unavailable Unavailable [facility], [facility]available [facility]available [facility] Unavailable Unavailable [facility], [facility] Unavailable [...] MORENO, Unavailable Unavailable SOTINGEANU MORENO [facility] Unavailable Unavailable [facility]IC[facility], [facility] VILA Unavailable Unavailable [facility] Unavailable Unavailable DEPT [facility] LUIS ARMANDO [facility] Unavailable Unavailable DEPT [facility] DEPT LUIS ARMANDO WINTER, WINTER Unavailable Unavailable Purpose Continuity of Care Document - 09-07-2015 through 2016 Problems Code Diagnosis DOS Provider Status L237 ALLERGIC 07-23-2017 [facility] CON[facility]CT [facility] DERMATITIS INC D/T PLANTS EXCP FOOD 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 03-29-2017 ST CULAR [facility] TACHYCARDIA PHYSICIANS [id number] UNSPECIFIED 03-08-2017 [facility] ASTHMA [facility] UNCOMPLICAT INC ED Z8679 PERSONAL 03-08-2017 [facility] HISTORY OTH [facility] DISEASES INC CIRCULATORY SYSTEM I4891 UNSPECIFIED 03-03-2017 [facility] R000 TACHYCARDIA 03-03-2017 [place] [facility] UNSPEC[facility] R079 CHEST PAIN 03-03-2017 [place] UNSPECIFIED [facility] B09906 REGULAR 11-24-2016 [facility] ASTIGMATISM BILATERAL I517 CARDIOMEGAL 09-07-2016 [place] [facility] Z23 ENCOUNTER 09-05-2016 [facility] DEPT N LUIS ARMANDO R110 NAUSEA 09-02-2016 [facility] J069 ACUTE UPPER 08-30-2016 [facility] RESPIRATORY INFECTION UNSPECIFIED I480 PAROXYSMAL 08-24-2016 ST ATRIAL QUE FIBRILLATIO PHYSICIANS N Z6831 BODY MASS 08-24-2016 ST INDEX BMI QUE 31.0-31.9 PHYSICIANS ADULT N34200 OTHER 08-24-2016 SPECIFIED QUE POSTPROCEDU PHYSICIANS [facility] STATES P11363 PRIMARY 08-21-2016 [place] OSTEOARTHRI MEDICAL TIS LEFT IMAGING ASS WRIST M27608 PAIN IN 08-21-2016 [place] LEFT WRIST [facility]ICAL [facility] C32985 OTHER 06-15-2016 [facility] SPASM 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 06-15-2016 [facility] AL JUNCTION [facility]ATES SYNDROME TIETZE J449 CHRONIC 05-25-2016 [facility]STRU[facility]IVE PHYSICIANS PULMONARY GROUP DISEASE UNS R9439 ABNORMAL 05-22-2016 [facility] RESULT OT [facility] CARDIOVASCU INC LR FUNCTION STUDY I4892 UNSPECIFIED 05-16-2016 [place] MONTAGUE FLUTTER PLLC Z7901 PRISON 05-16-2016 [facility] CURRENT USE [facility] P [place]TICO[place] NTS W07498 PERSONAL 05-16-2016 [facility] HISTORY OF [facility] P DEPENDENCE I5189 OTHER 05-11-2016 [facility] ILL-DEFINED PHYSICIANS HEART GROUP DISEASES H109 UNSPECIFIED 04-29-2016 [facility] PHYSICIAN CONJUNCTIVI GROUP TIS I509 HEART 04-19-2016 [place] [facility] FAILURE [facility] UNSPECIFIED FOUNDATION X13138 PAIN IN 02-18-2016 [place] LEFT LOWER MEDICAL LEG IMAGING ASS D492 NEOPLASM OF 02-15-2016 [facility] UNS ASSOCIATES BEHAVIOR BONE SOFT TISSUE & SKIN U96475 PAIN IN 01-14-2016 [facility] LEFT KNEE MEDICAL IMAGING ASS G00274 PAIN IN 01-14-2016 [place] LEFT ANKLE MEDICAL IMAGING ASS R99796 PAIN IN 12-14-2015 [place] LEFT FOOT MEDICAL IMAGING ASS M7989 OTHER 12-14-2015 [place] SPECIFIED MEDICAL SOFT TISSUE IMAGING ASS DISORDERS S0832PG CONTUSION 12-14-2015 [place] OF LEFT PHYSICIANS, ANKLE PLLC INITIAL ENCOUNTER W13735S UNSPECIFIED 12-14-2015 [place] INJURY MEDICAL LEFT ANKLE IMAGING ASS INITIAL ENCOUNTER [id number] UNSPECIFIED 12-14-2015 [place] INJURY MEDICAL LEFT FOOT IMAGING ASS INITIAL [...] 66 -1 -0 0. 00 L- ti MT 40 0- 7- 00 07 MA ve [...] [facility] INC INC THERAPEUT 85826 [facility] STALLWORTH IC 7 [facility] PROPHYLAC INC INC TIC/DX INJECTION SUBQ/IM ANES 56036 ANESTHESI CADENCE CARDIAC 7 A GROUP ELECTROPH PRACTICE YSIOL STDY W/RF ABLATION PROGRAMME 98951 ST [facility] D STIMJ & 7 QUE PACG AFTER IV PHYSICIAN DRUG NFS S EPHYS 10995 ST [facility] EVAL 7 QUE W/ABLATIO N PHYSICIAN SUPRAVENT S ARRHYTHMI A INTRACARD 73079 ST [facility] IAC 7 QUE ELECTROPH YSIOLOGIC PHYSICIAN 3D S MAPPING COMPRE 52034 ST [facility] ELECTROPH 7 QUE YSIOL XM W/LEFT PHYSICIAN ATRIAL S PACNG/REC ECG 54320 [facility] STALLWORTH ROUTINE 7 [facility] ECG INC INC W/LEAST 12 LDS TRCG ONLY W/O I&R ECG 70707 [facility] STALLWORTH ROUTINE 7 [facility] ECG INC INC W/LEAST 12 LDS TRCG ONLY W/O I&R COMPREHEN 52753 [facility] STALLWORTH SIVE 7 [facility] METABOLIC INC INC PANEL CREATINE 11991 [facility] STALLWORTH KINASE 7 [facility] [place] [address] BAS[facility] STALLWORTH INFUSION 7 [facility] THERAPY/P INC INC ROPHYLAXI S /DX 1ST TO 1 HR UNCLASSIF J3490 [facility] STALLWORTH IED DRUGS 7 [facility] INC INC RADIOLOGI 96973 [place] CAMPBELL C 7 MEDICAL EXAMINATI IMAGING ON [place] [address] [facility] STALLWORTH TROPONIN 7 [facility] QUANTITAT INC INC MANUEL BLOOD 59032 [facility] STALLWORTH COUNT 7 [facility] COMPLETE INC INC AUTO&AUTO DIFRNTL WBC ECG 91594 [place] ELDER, ROUTINE 7 PHYSICIAN JR ECG S, PLLC W/LEAST 12 LDS I&R ONLY CREATINE 82899 [facility] COONON KINASE MB 7 [facility] FRACTION INC INC ONLY OPHTH 67960 [employer] MEDICAL 7 XM&EVAL COMPRE NEW PT 1/> VST ECHO 76460 EDMUND PATINO TTHRC R-T 6 MEDICAL 2D SERV W/WOM-MOD FOUNDATIO E COMPL N SPEC&COLR D IIV4 VACC 22082 [facility] VIRUS 0.5 HLTH DEPT HLTH DEPT ML DOS LUIS ARMANDO LUIS ARMANDO FOR IM USE IAADIADOO 25909 FAMILY MULBERRY 6 CARE KIMBERLYN INFLUENZA ASSOCIATE S IAADIADOO 57286 FAMILY MULBERRY 6 CARE KIMBERLYN STREPTOCO ASSOCIATE CCUS S GROUP A BLOOD 18746 FAMILY MULBERRY COUNT 6 CARE KIMBERLYN COMPLETE ASSOCIATE AUTO&AUTO S DIFRNTL WBC COLLECTIO 73694 FAMILY MULBERRY N 6 CARE KIMBERLYN CAPILLARY ASSOCIATE BLOOD S SPECIMEN ECG [address] [facility] ROUTINE 6 QUE ECG W/LEAST PHYSICIAN 12 LDS S W/I&R RADEX 18939 [place] ALFREDO WRIST 6 MEDICAL NGUYEN COMPLETE IMAGING MINIMUM 3 ASS VIE[address] INTRACARD [address] [facility] ECHOCARD 6 QUE THO W/THER/DX PHYSICIAN IVNTJ S INCL IMG S&I ANES 18486 ANESTHESI RICE ARLINE CARDIAC 6 A GROUP ELECTROPH PRACTICE YSIOL STDY W/RF ABLATION INTRACARD 21251 ST [facility] IAC 6 QUE THO ELECTROPH YSIOLOGIC PHYSICIAN 3D S MAPPING EPHYS EVL 40820 ST A[facility]EE TRNSPTL 6 QUE THO TX ATRIAL FIB PHYSICIAN ISOLAT S PULM VEIN ECG [address]30 ST HEEB CHR ROUTINE 6 QUE ECG MED CTR W/LEAST 12 LDS I&R ONLY GAS 98939 [facility] STALLWORTH DILUT/WAS 6 [facility] HOUT LUNG INC INC VOL W/WO DISTRIB VENT&[place] [address] [facility] STALLWORTH DIFFUSING 6 [facility] CAPACITY INC INC BRNCDILAT 93923 [facility] STALLWORTH RSPSE 6 [facility] SPMTRY INC INC PRE&POST- BRNCDILAT ADMN ECG 41467 [facility] ROUTINE 6 PHYSICIAN MAT ECG S GROUP W/LEAST 12 LDS I&R ONLY ECG 03541 [facility] ROUTINE 6 PHYSICIAN MAT ECG S GROUP W/LEAST 12 LDS I&R ONLY ECG 31729 [facility] HARP JR ROUTINE 6 [facility] W/LEAST P 12 LDS I&R ONLY RADIOLOGI 59440 [facility] ALL C EXAM 6 MEDICAL CHEST 2 IMAGING VIEWS ASS FRONTAL&L ATERAL CV STRS 86757 [facility] FALLUJI TST 6 PHYSICIAN XERS&/OR S GROUP RX CONT ECG W/O I&R CREATINE 89238 [facility] STALLWORTH KINASE 6 [facility] TOTAL INC INC OBSERVATI 69500 FAMILY ARTEAGA ON/INPATI 6 CARE R H ENT ASSOCIATE HOSPITAL S CARE [address] [place] [address] BAS[facility] STALLWORTH TROPONIN 6 [facility] QUANTITAT INC INC MANUEL CREATINE 42354 [facility] STALLWORTH KINASE MB 6 [facility] FRACTION INC INC ONLY COLLECTIO 67208 [facility] STALLWORTH N VENOUS 6 [facility] BLOOD INC INC VENIPUNCT [facility] G0378 BASIM STALLWORTH OBSERVATI 6 [facility] ON INC INC [facility] G0378 BAS[facility] STALLWORTH OBSERVATI 6 [facility] ON INC INC SERVICE PER HOUR COLLECTIO 37786 [facility] STALLWORTH N VENOUS 6 [facility]OS[facility] BLOOD INC INC VENIPUNCT URE THYROID 66949 [facility] STALLWORTH HORM 6 [facility] UPTK/THYR INC [place] [address] [facility] STALLWORTH THYROXINE 6 [facility]OS[facility] TOTAL INC INC RADIOLOGI 31806 [place] ALFREDO C 6 MEDICAL NGUYEN EXAMINATI IMAGING ON CHEST ASS SINGLE VIEW FRONTAL CREATINE 10108 BAS[facility] BASIM KINASE MB 6 [facility] [place] [address] BAS[facility] STALLWORTH THYROID 6 [facility] STIMULATI INC INC NG HORMONE TSH ECG 41808 [facility] WANDA ROUTINE 6 [facility] W/LEAST P 12 LDS I&[place] [address] BASIM BASIM TROPONIN 6 [facility] QUANTITAT INC INC MANUEL BLOOD 69717 BAS[facility]IM COUNT 6 [facility] COMPLETE INC INC AUTO&AUTO DIFRNTL WBC ECHO 59857 [place] [facility] 6 MEDICAL 2D SERV W/WOM-MOD FOUNDATIO E COMPL N SPEC&COLR D CREATINE 36707 [facility] STALLWORTH KINASE 6 [facility] TOTAL INC INC ECG 81271 [facility] STALLWORTH ROUTINE 6 [facility] ECG INC INC W/LEAST 12 LDS TRCG ONLY W/O I&[place] [address] [facility] STALLWORTH MAGNESIUM 6 [facility] [place] [address] [facility] STALLWORTH PHOSPHORU 6 [facility] S INC INC INORGANIC COMPREHEN 25494 [facility] STALLWORTH SIVE 6 [facility] [place] [address] [place] ALFREDO EXTREMITY 6 MEDICAL NGUYEN NON-VASC IMAGING ASS REAL-TIME IMG LMTD TECHNETIU A9503 [facility] Fontana TC-99M 6 [facility] MEDRONATE INC INC DX UP TO 30 MCI BONE 36353 [place] ALFREDO &/JOINT 6 MEDICAL NGUYEN IMAGING IMAGING WHOLE ASS BODY UNCLASSIF J3490 [facility] STALLWORTH IED DRUGS 6 [facility] INC INC RADEX 55741 [place] CAMPBELL ALL ANKLE 6 MEDICAL COMPLETE IMAGING MINIMUM 3 ASS VIEWS RADEX 98766 [place] CAMPBELL ALL FOOT 6 MEDICAL COMPLETE IMAGING MINIMUM 3 ASS VIEWS RADIOLOGI 46198 [place] ALFREDO C 6 MEDICAL NGUYEN EXAMINATI IMAGING ON TIBIA ASS & FIBULA 2 VIEWS Encounters Encounter Start End Date Code Location Performer Type Date OFFICE 30339 [facility] OUT[facility]IEN 7 7 [facility] T VISIT 5 INC MINUTES [facility]OSPITAL [facility] - 7 7 [facility] OUTPATIEN INC T [facility]OSPITAL [facility] - 7 7 [facility] OUTPATIEN INC T HOSPITAL [facility] - 7 7 [facility] OUTPATIEN INC T EMERGENCY 32068 [place] ELDER, 7 7 PHYSICIAN JR ESCALANTE S, [facility] T VISIT HIGH/URGE NT SEVERITY OFFICE 50617 [facility] FRYMAN OUTPATIEN 6 6 PHYSICIAN T VISIT GROUP 25 MINUTES OFFICE 10753 [facility] MULBERRY OUTPATIEN 6 6 CARE KIMBERLYN T VISIT ASSOCIATE [address]ES [address] [facility] OUTPATIEN 6 6 QUE T VISIT 15 PHYSICIAN MINUTES S OFFICE 62122 [facility] MULBERRY OUTPATIEN 6 6 CARE KIMBERLYN T VISIT ASSOCIATE 15 S MINUTES OFFICE 88549 [facility] CROWDY OUTPATIEN 6 6 CARE CRI T VISIT ASSOCIATE 15 S MINUTES OFFICE 41796 [facility] TONEY OUTPATIEN 6 6 PHYSICIAN MAT T VISIT S GROUP 40 MINUTES HOSPITAL BASIM - 6 6 [facility] OUTPATIEN INC T OFFICE 33137 [facility] TONEY OUTPATIEN 6 6 PHYSICIAN MAT T VISIT S GROUP 40 MINUTES EMERGENCY 34167 [place] TATE DEPT 6 6 PHYSICIAN ELIZABETH VISIT S, [facility] HIGH SEVERITY& THREAT FUNJ OFFICE 00124 [facility] TONEY OUTPATIEN 6 6 PHYSICIAN MAT T VISIT S GROUP 25 MINUTES OFFICE 36798 [facility] LEDESMA OUTPATIEN 6 6 PHYSICIAN T VISIT GROUP 15 MINUTES EMERGENCY 45605 [place] QUIROGA DEPT 6 6 PHYSICIAN U MORENO VISIT S, [facility] HIGH SEVERITY& THREAT FUNJ HOSPITAL [facility] - 6 6 [facility] OUTPATIEN INC T OFFICE 81638 FAMILY MULBERRY OUTPATIEN 6 6 CARE KIMBERLYN T VISIT ASSOCIATE 15 S MINUTES OFFICE 02509 [facility] MULBERRY OUTPATIEN 6 6 CARE KIMBRELYN T VISIT ASSOCIATE 15 S MINUTES HOSPITAL [facility] - 6 6 [facility] OUTPATIEN INC T EMERGENCY 51974 [facility] 6 6 [facility] DEPARTMEN INC T VISIT LOW/MODER SEVERITY EMERGENCY 38373 [place] QUIROGA 6 6 PHYSICIAN U MORENO DEPARTMEN S, [facility] T VISIT MODERATE SEVERITY HOSPITAL BASIM - 6 6 [facility] OUTPATIEN INC T OFFICE 95956 FAMILY MULBERRY OUTPATIEN 6 6 CARE KIMBERLYN T VISIT ASSOCIATE 15 S MINUTES OFFICE 23739 [facility] SALTER TER OUTPATIEN 5 5 PHYSICIAN T VISIT S GROUP 10 MINUTES
--- OUTSIDE RECORDS SUMMARY | 2017-07-05 11:11 | External Medical Summary Rpt | CCD ---
Author Author , ELIEZER Organization ELIEZER Address Unknown Phone [email or web address] Care Team Providers Care Microfilm Processor Name Role Phone SALTER TER, SALTER TER [...] Unavailable Unavailable FRYMAN, FRYMAN Unavailable Unavailable JR ELDER FULLER, Unavailable Unavailable JR BEBETO ELIZABETH, BEBETO Unavailable Unavailable ELIZABETH [facility] Un[facility] Un[facility], [facility] Unavailable Unavailable HOSPITAL P, [facility] HEEB CHR, HEEB CHR Unavailable Unavailable [facility], Unavailable Unavailable [facility], Unavailable Unavailable [facility] Un[facility], [facility], [facility] LOYD JR DWI, LOYD Unavailable Unavailable JR DWI MULBERRY KIMBERLYN, Unavailable Unavailable MULBERRY KIMBERLYN [facility], Unavailable Unavailable [facility], Unavailable Unavailable [facility], [facility] KEITH, KEITH Unavailable Unavailable SCIFRES, SCIFRES Unavailable Unavailable SCIFRES, SCIFRES Unavailable Unavailable TONEY MAT, Unavailable Unavailable TONEY MAT SUKUMAR PATINO Unavailable Unavailable SOTINGEANU MORENO, Unavailable Unavailable SOTINGEANU MORENO [facility] Unavailable [facility] Unavailable Unavailable DEPT [facility] DEPT [facility] Unavailable [facility]available DEPT [facility] DE[facility] LUIS ARMANDO WINTER, WINTER Unavailable Unavailable ZANGRANDO, ZANGRANDO Unavailable Unavailable Purpose Continuity of Care Document - 09-07-2015 through 2016 Problems Code Diagnosis DOS Provider Status L237 ALLERGIC 04-15-2017 [facility] DERMATITIS INC D/T PLANTS EXCP FOOD 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 03-29-2017 [facility] [id number] UNSPECIFIED 03-08-2017 [facility] ASTHMA [facility] UNCOMPLICAT INC ED Z8679 PERSONAL 03-08-2017 [facility] HISTORY OTH [facility] DISEASES INC CIRCULATORY SYSTEM I4891 UNSPECIFIED 03-03-2017 [facility] N R000 TACHYCARDIA 03-03-2017 [facility] R079 CHEST PAIN 03-03-2017 [facility] F32314 REGULAR 11-24-2016 [facility]IF[facility] ASTIGMATISM BILATERAL I517 CARDIOMEGAL 09-07-2016 [facility] Z23 ENCOUNTER 09-05-2016 [facility] IMMUNIZATIO TH DEPT N LUIS ARMANDO R110 NAUSEA 09-02-2016 [facility] J069 ACUTE UPPER 08-30-2016 [facility] RESPIRATORY INFECTION UNSPECIFIED I480 PAROXYSMAL 08-24-2016 ST ATRIAL [facility] FIBRILLATIO PHYSICIANS N Z6831 BODY MASS 08-24-2016 ST INDEX BMI QUE 31.0-31.9 PHYSICIANS ADULT R00765 OTHER 08-24-2016 ST SPECIFIED QUE POSTPROCEDU PHYSICIANS [facility] STATES D90260 PRIMARY 08-21-2016 [facility] OSTEOARTHRI [facility]ICAL TIS LEFT IMAGING ASS WRIST P47342 PAIN IN 08-21-2016 [facility] WRIST [facility] W61067 OTHER 06-15-2016 [facility] SPASM 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 06-15-2016 [facility] AL JUNCTION [facility] SYNDROME TIETZE J449 CHRONIC 05-25-2016 [facility] OBSTRUCTIVE PHYSICIANS PULMONARY GROUP DISEASE UNS R9439 ABNORMAL 05-22-2016 [facility] RESULT OT [facility] CARDIOVASCU INC LR FUNCTION STUDY I4892 UNSPECIFIED 05-16-2016 [facility], FLUTTER PLLC Z7901 SENIOR LIVING 05-16-2016 [facility] CURRENT USE [facility] [place] NTS N47673 PERSONAL 05-16-2016 [facility] HISTORY OF [facility] P DEPENDENCE I5189 OTHER 05-11-2016 [facility] ILL-DEFINED PHYSICIANS HEART GROUP DISEASES H109 UNSPECIFIED 04-29-2016 [facility] PHYSICIAN CONJUNCTIVI GROUP TIS I509 HEART 04-19-2016 [facility] UNSPECIFIED [facility]OUNDATION D84511 PAIN IN 02-18-2016 [facility] LEFT LOWER MEDICAL LEG [facility] ASS D492 NEOPLASM OF 02-15-2016 [facility] UNS ASSOCIATES BEHAVIOR BONE SOFT TISSUE & SKIN A29938 PAIN IN 01-14-2016 [facility] LEFT KNEE [facility]ICAL [facility] G49452 PAIN IN 01-14-2016 [facility] ANKLE [facility]ICAL [facility] M24518 PAIN IN 12-14-2015 [facility] LEFT FOOT [facility]ICAL [facility] M7989 OTHER 12-14-2015 [facility] SPECIFIED MEDICAL SOFT TISSUE IMAGING ASS DISORDERS M9731VV CONTUSION 12-14-2015 [place] OF LEFT PHYSICIANS, ANKLE PLLC INITIAL ENCOUNTER [id number] UNSPECIFIED 12-14-2015 [facility] INJURY MEDICAL LEFT ANKLE IMAGING ASS INITIAL ENCOUNTER O00113T UNSPECIFIED 12-14-2015 [facility] INJURY [facility]ICAL LEFT FOOT IMAGING ASS INITIAL [...] 66 -1 -0 0. 00 L- ti VT 40 0- 7- 00 07 MA ve [...] Procedures Procedure DOS Code Location Performer Comment THERAPEUT 93313 [facility] ST[facility]TH IC 7 [facility] PROPHYLAC INC INC TIC/DX INJECTION SUBQ/IM UNCLASSIF J3490 [facility] IED DRUGS 7 [facility] INC INC PROGRAMME 83156 [facility] D STIMJ & 7 QUE PACG AFTER IV PHYSICIAN DRUG NFS S EPHYS 87039 [facility] EVAL 7 QUE W/ABLATIO N PHYSICIAN SUPRAVENT S ARRHYTHMI A INTRACARD 14363 [facility] IAC 7 QUE ELECTROPH YSIOLOGIC PHYSICIAN 3D S MAPPING COMPRE 68185 [facility] ELECTROPH 7 QUE YSIOL XM W/LEFT PHYSICIAN ATRIAL S PACNG/REC ANES 99145 ANESTHESI ZANGRANDO CARDIAC 7 A GROUP ELECTROPH PRACTICE YSIOL STDY W/RF ABLATION ECG 47734 [facility] ROUTINE 7 [facility] ECG INC INC W/LEAST 12 LDS TRCG ONLY W/O I&R CREATINE 37308 [facility] KINASE 7 [facility] TOTAL INC INC ECG 82307 [facility] ROUTINE 7 [facility] ECG INC INC W/LEAST 12 LDS TRCG ONLY W/O I&R CREATINE 16686 [facility] KINASE MB 7 [facility] FRACTION INC INC ONLY ECG 37344 [facility] ELDER, ROUTINE 7 PHYSICIAN JR ECG S, PLLC W/LEAST 12 LDS [place] [address] [facility] INFUSION 7 [facility] THERAPY/P INC INC ROPHYLAXI S /DX 1ST TO 1 [place] [address] [facility] TROPONIN 7 [facility] QUANTITAT INC INC MANUEL BLOOD 95889 [facility] COUNT 7 [facility] COMPLETE INC INC AUTO&AUTO DIFRNTL WBC COMPREHEN 71178 [facility] SIVE 7 [facility] METABOLIC INC INC PANEL RADIOLOGI 06167 [facility] C 7 MEDICAL EXAMINATI IMAGING ON CHEST ASS SINGLE VIEW FRONTAL UNCLASSIF J3490 [facility] IED DRUGS 7 [facility] INC INC OPHTH 15346 SCIFRES SCIFRES MEDICAL 7 XM&EVAL COMPRE NEW PT 1/> VST ECHO 20454 EDMUND PATINO TTHRC R-T 6 MEDICAL 2D SERV W/WOM-MOD FOUNDATIO E COMPL N SPEC&COLR D IIV4 VACC 85923 [facility] VIRUS 0.5 HLTH DEPT HLTH DEPT ML DOS LUIS ARMANDO LUIS ARMANDO FOR IM USE BLOOD 14299 [facility] MULBERRY COUNT 6 CARE KIMBERLYN COMPLETE ASSOCIATE AUTO&AUTO S DIFRNTL WBC IAADIADOO 13275 [facility]ILY MULBERRY 6 CARE KIMBERLYN STREPTOCO ASSOCIATE CCUS S GROUP A COLLECTIO 47495 FAMILY MULBERRY N 6 CARE KIMBERLYN CAPILLARY ASSOCIATE BLOOD S SPECIMEN IAADIADOO 47421 FAMILY MULBERRY 6 CARE KIMBERLYN INFLUENZA ASSOCIATE S ECG [address]8987 [facility] ROUTINE 6 QUE ECG W/LEAST PHYSICIAN 12 LDS S W/I&R RADEX 83066 [facility] ALFREDO WRIST 6 MEDICAL NGUYEN COMPLETE IMAGING MINIMUM 3 ASS VIEWS EPHYS EVL 68413 [facility] TRNSPTL 6 QUE THO TX ATRIAL FIB PHYSICIAN ISOLAT S PULM VEIN ANES 61926 ANESTHESI KEITH CARDIAC 6 A GROUP ELECTROPH PRACTICE YSIOL STDY W/RF ABLATION INTRACARD 45025 [facility] IAC 6 QUE THO ELECTROPH YSIOLOGIC PHYSICIAN 3D S MAPPING INTRACARD 14977 [facility] ECHOCARD 6 QUE THO W/THER/DX PHYSICIAN IVNTJ S INCL IMG S&I ECG [address] ST HEEB CHR ROUTINE 6 QUE ECG MED CTR W/LEAST 12 LDS I&R ONLY BRNCDILAT 88527 [facility] RSPSE 6 [facility] SPMTRY INC INC PRE&POST- BRNCDILAT ADMN GAS 44596 [facility] DILUT/WAS 6 [facility] HOUT LUNG INC INC VOL W/WO DISTRIB VENT&[place] [address] [facility] DIFFUSING 6 [facility] CAPACITY INC INC ECG 16618 [facility] ROUTINE 6 PHYSICIAN MAT ECG S GROUP W/LEAST 12 LDS I&R ONLY ECG 53740 [facility] ROUTINE 6 PHYSICIAN MAT ECG S GROUP W/LEAST 12 LDS I&R ONLY RADIOLOGI 60598 [facility] ALL C EXAM 6 MEDICAL CHEST 2 IMAGING VIEWS ASS FRONTAL&L ATERAL ECG 28881 [facility] HARP JR ROUTINE 6 [facility] W/LEAST P 12 LDS I&R ONLY CV STRS 31366 [facility] FALLUJI TST 6 PHYSICIAN XERS&/OR S GROUP RX CONT ECG W/O I&R COLLECTIO 84298 [facility] N VENOUS 6 [facility] BLOOD INC INC VENIPUNCT URE CREATINE 45578 [facility] KINASE 6 [facility] [place] [address] [facility] TROPONIN 6 [facility] QUANTITAT INC INC MANUEL OBSERVATI 12021 FAMILY OWENFLEET ON/INPATI 6 CARE R H ENT [facility] S CARE 50 MINUTES CREATINE 01866 [facility] STALL[facility] KINASE MB 6 [facility] FRACTION INC INC ONLY HOSPITAL G0378 [facility] OBSERVATI 6 [facility] ON INC INC SERVICE PER HOUR COMPREHEN 84773 [facility] SIVE 6 [facility] [place] [address] [facility] THYROXINE 6 [facility] TOTAL INC INC RADIOLOGI 10882 [facility] C 6 [facility] EXAMINATI INC INC [place] [address] BASIMRUI STALLWOR[facility] THYROID 6 [facility] STIMULATI INC INC [facility] G0378 BASIM BASIM OBSERVATI 6 [facility] ON INC INC SERVICE PER HOUR CREATINE 23056 BASIMR[facility] STALLWORTH KINASE MB 6 [facility] FRACTION INC INC ONLY BLOOD 43770 BASIM[facility] COONON COUNT 6 [facility] COMPLETE INC INC AUTO&AUTO DIFRNTL WBC THYROID 47951 [facility] HORM 6 [facility] UPTK/THYR INC INC [place] [address] [facility] TROPONIN 6 [facility] [place] [address] [facility] MAGNESIUM 6 [facility] [place] [address] [facility] PHOSPHORU 6 [facility] S INC INC INORGANIC CREATINE 06576 [facility] KINASE 6 [facility] TOTAL INC INC ECG 48296 [facility] ROUTINE 6 [facility] ECG INC INC W/LEAST 12 LDS TRCG ONLY W/O I&R COLLECTIO 21402 [facility] N VENOUS 6 [facility] BLOOD INC INC VENIPUNCT URE ECG 40267 [facility] MUÑOZ ROUTINE 6 [facility] W/LEAST P 12 LDS I&R ONLY ECHO 53450 [facility] ST[facility] TTHRC R-T 6 [facility] 2D INC INC W/WOM-MOD E COMPL SPEC&COLR D 54873 [facility] EXTREMITY 6 MEDICAL NGUYEN NON-VASC IMAGING ASS REAL-TIME IMG LMTD TECHNETIU A9503 [facility] Fontana TC-99M 6 [facility] MEDRONATE INC INC DX UP TO 30 MCI BONE 31049 [facility] STALLWORTH &/JOINT 6 [facility] IMAGING INC INC WHOLE BODY UNCLASSIF J3490 [facility] IED DRUGS 6 [facility] INC INC RADEX 61045 [facility] ALL ANKLE 6 MEDICAL COMPLETE IMAGING MINIMUM 3 ASS VIEWS RADEX 82465 [facility] ALL FOOT 6 MEDICAL COMPLETE IMAGING MINIMUM 3 ASS VIEWS RADIOLOGI 67404 [facility] 6 MEDICAL NGUYEN EXAMINATI IMAGING ON TIBIA ASS & FIBULA 2 VIEWS Encounters Encounter Start End Date Code Location Performer Type Date [facility] - 7 7 [facility] OUTPATIEN INC T OFFICE 54563 [facility] 7 [facility] T VISIT 5 INC MINUTES HOSPITAL [facility] - 7 7 [facility] OUTPATIEN INC T HOSPITAL [facility] - 7 7 [facility] OUTPATIEN INC T EMERGENCY 79972 [facility] E[facility] 7 7 PHYSICIAN JR ESCALANTE S, PLLC T VISIT HIGH/URGE NT SEVERITY OFFICE 30414 [facility] FRYMAN OUTPATIEN 6 6 PHYSICIAN T VISIT GROUP 25 MINUTES OFFICE 13067 [facility] MULBERRY OUTPATIEN 6 6 CARE KIMBERLYN T VISIT ASSOCIATE [address]ES [address] [facility] OUTPATIEN 6 6 QUE T VISIT 15 PHYSICIAN MINUTES S OFFICE 79685 [facility] MULBERRY OUTPATIEN 6 6 CARE KIMBERLYN T VISIT ASSOCIATE 15 S MINUTES OFFICE 84544 [facility] CROWDY OUTPATIEN 6 6 CARE CRI T VISIT ASSOCIATE 15 S MINUTES OFFICE 36032 [facility] TONEY OUTPATIEN 6 6 PHYSICIAN MAT T VISIT S GROUP 40 MINUTES HOSPITAL BASIM - 6 6 [facility] OUTPATIEN INC T OFFICE 69924 [facility] TONEY OUTPATIEN 6 6 PHYSICIAN MAT T VISIT S GROUP 40 MINUTES EMERGENCY 51457 [facility] TATE DEPT 6 6 PHYSICIAN ELIZABETH VISIT S, PLLC HIGH SEVERITY& THREAT FUNCJ OFFICE 24595 [facility] TONEY OUTPATIEN 6 6 PHYSICIAN MAT T VISIT S GROUP 25 MINUTES OFFICE 03421 [facility] ELDESMA OUTPATIEN 6 6 PHYSICIAN T VISIT GROUP 15 MINUTES EMERGENCY 35783 [facility] DEPT 6 6 [facility] VISIT INC HIGH SEVERITY& THREAT [facility] BASIM - 6 6 [facility] OUTPATIEN INC T OFFICE 68679 [facility] MULBERRY OUTPATIEN 6 6 CARE KIMBERLYN T VISIT ASSOCIATE 15 S MINUTES OFFICE 29593 [facility] MULBERRY OUTPATIEN 6 6 CARE KIMBERLYN T VISIT ASSOCIATE 15 S MINUTES HOSPITAL [facility] - 6 6 [facility] OUTPATIEN INC T EMERGENCY 72443 [facility] QUIROGA 6 6 PHYSICIAN U MORENO DEPARTMEN S, [facility] T VISIT MODERATE SEVERITY EMERGENCY 95135 [facility] 6 6 [facility] DEPARTMEN INC T VISIT LOW/MODER SEVERITY HOSPITAL [facility] - 6 6 [facility] OUTPATIEN INC T OFFICE 11681 FAM[facility] MULBERRY OUTPATIEN 6 6 CARE KIMBERLYN T VISIT ASSOCIATE 15 S MINUTES OFFICE 63335 [facility] SALTER TER OUTPATIEN 5 5 PHYSICIAN T VISIT S GROUP 10 MINUTES
--- OUTSIDE RECORDS SUMMARY | 2017-07-05 11:11 | External Medical Summary Rpt | CCD ---
Author Author , ELIEZER Organization ELIEZER Address Unknown Phone [email or web address] Care Team Providers Care Tool Maker Bench Name Role Phone SALTER TER, SALTER TER [...] Unavailable Unavailable INC, [facility] Unavailable Unavailable HOSPITAL P, [facility] HEEB CHR, [facility] Unavailable [facility]available [facility], Unavailable Unavailable [facility], Unavailable Unavailable [facility] [place] [facility] Unavailable Unavailable [...] QUE Unavailable Unavailable PHYSICIANS, [facility] Unavailable [facility]available DEPT [facility], [facility] DEPT [facility] Unavailable [facility]available DEPT [facility], [facility] DEPT LUIS ARMANDO WINTER, WINTER Unavailable Unavailable ZANGRANDO, ZANGRANDO Unavailable Unavailable Purpose Continuity of Care Document - 09-07-2015 through 2016 Problems Code Diagnosis DOS Provider Status L237 ALLERGIC 04-15-2017 [facility] DERMATITIS INC D/T PLANTS EXCP FOOD 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 03-29-2017 ST CULAR [facility] TACHYCARDIA PHYSICIANS R02004 UNSPECIFIED 03-08-2017 [facility] ASTHMA [facility] UNCOMPLICAT INC ED Z8679 PERSONAL 03-08-2017 [facility] HISTORY OTH [facility] DISEASES INC CIRCULATORY SYSTEM I4891 UNSPECIFIED 03-03-2017 [facility] ATRIAL [facility] N R000 TACHYCARDIA 03-03-2017 [place] [facility] UNSPECIFIED IMAGING ASS R079 CHEST PAIN 03-03-2017 [place] UNSPECIFIED MEDICAL IMAGING ASS E25437 REGULAR 11-24-2016 [facility] ASTIGMATISM BILATERAL I517 CARDIOMEGAL 09-07-2016 [facility] Z23 ENCOUNTER 09-05-2016 [facility] IMMUNIZATIO TH DEPT N LUIS ARMANDO R110 NAUSEA 09-02-2016 [facility] J069 ACUTE UPPER 08-30-2016 [facility] RESPIRATORY INFECTION UNSPECIFIED I480 PAROXYSMAL 08-24-2016 ST ATRIAL QUE FIBRILLATIO PHYSICIANS N Z6831 BODY MASS 08-24-2016 ST INDEX BMI QUE 31.0-31.9 PHYSICIANS ADULT [id number] OTHER 08-24-2016 ST SPECIFIED QUE POSTPROCEDU PHYSICIANS [facility] STATES H28517 PRIMARY 08-21-2016 [place] OSTEOARTHRI MEDICAL TIS LEFT IMAGING ASS WRIST L75228 PAIN IN 08-21-2016 [place] LEFT WRIST MEDICAL IMAGING ASS G68898 OTHER 06-15-2016 [facility] SPASM 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 06-15-2016 [facility] JUNCTION [facility] SYNDROME TIETZE J449 CHRONIC 05-25-2016 [facility] OBSTRUCTIVE PHYSICIANS PULMONARY GROUP DISEASE UNS R9439 ABNORMAL 05-22-2016 [facility] RESULT OT [facility] CARDIOVASCU INC LR FUNCTION STUDY I4892 UNSPECIFIED 05-16-2016 [place] ATRIAL PHYSIC[facility]ANS, FLUTTER PLLC Z7901 PRISON 05-16-2016 [facility] CURRENT USE [facility] P [place]TICO[place] NTS I00321 PERSONAL 05-16-2016 [facility] HISTORY OF [facility] P DEPENDENCE I5189 OTHER 05-11-2016 [facility] ILL-DEFINED PHYSICIANS HEART GROUP DISEASES H109 UNSPECIFIED 04-29-2016 [facility] PHYSICIAN CONJUNCTIVI GROUP TIS I509 HEART 04-19-2016 [facility] FAILURE SERV UNSPECIFIED FOUNDATION O20111 PAIN IN 02-18-2016 [place] LEFT LOWER MEDICAL LEG IMAGING ASS D492 NEOPLASM OF 02-15-2016 [facility] UNS ASSOCIATES BEHAVIOR BONE SOFT TISSUE & SKIN F92116 PAIN IN 01-14-2016 [place] LEFT KNEE MEDICAL IMAGING ASS D54874 PAIN IN 01-14-2016 [place] LEFT ANKLE MEDICAL IMAGING ASS D53544 PAIN IN 12-14-2015 [place] LEFT FOOT MEDICAL IMAGING ASS M7989 OTHER 12-14-2015 [place] SPECIFIED MEDICAL SOFT TISSUE IMAGING ASS DISORDERS [id number] CONTUSION 12-14-2015 [place] OF LEFT PHYSICIANS, ANKLE PLLC INITIAL ENCOUNTER H43246F UNSPECIFIED 12-14-2015 [place] INJURY MEDICAL LEFT ANKLE IMAGING ASS INITIAL ENCOUNTER E16587R UNSPECIFIED 12-14-2015 [place] INJURY MEDICAL LEFT [...] Procedure DOS Code Location Performer Comment THERAPEUT 94058 [facility] STALLWORTH IC 7 [facility] PROPHYLAC INC INC TIC/DX INJECTION SUBQ/IM UNCLASSIF J3490 [facility] IED DRUGS 7 [facility] INC INC PROGRAMME [address] [facility] D STIMJ & 7 QUE PACG AFTER IV PHYSICIAN DRUG NFS S EPHYS 64024 [facility] EVAL 7 QUE W/ABLATIO N PHYSICIAN SUPRAVENT S ARRHYTHMI A INTRACARD 96461 [facility] IAC 7 QUE ELECTROPH YSIOLOGIC PHYSICIAN 3D S MAPPING COMPRE [address] [facility] ELECTROPH 7 QUE YSIOL XM W/LEFT PHYSICIAN ATRIAL S PACNG/REC ANES 59760 ANESTHESI ZANGRANDO CARDIAC 7 A GROUP ELECTROPH PRACTICE YSIOL STDY W/RF ABLATION ECG 18523 [facility] ROUTINE 7 [facility] ECG INC INC W/LEAST 12 LDS TRCG ONLY W/O I&R CREATINE 19312 [facility] ST[facility] KINASE 7 [facility] TOTAL INC INC ECG 74492 [facility] ROUTINE 7 [facility] ECG INC INC W/LEAST 12 LDS TRCG ONLY W/O I&R CREATINE 16867 [facility] ST[facility] KINASE MB 7 [facility] FRACTION INC INC ONLY ECG 71724 [place] ELDER, ROUTINE 7 PHYSICIAN JR ECG S, PLLC W/LEAST 12 LDS [place] [address] [facility] STALLWORTH INFUSION 7 [facility] THERAPY/P INC INC ROPHYLAXI S /DX 1ST TO 1 [place] [address] [facility] TROPONIN 7 [facility] QUANTITAT INC INC MANUEL BLOOD 56540 [facility] COUNT 7 [facility] COMPLETE INC INC AUTO&AUTO DIFRNTL WBC COMPREHEN 61328 [facility] SIVE 7 [facility] METABOLIC INC INC PANEL RADIOLOGI 75263 [place] CAMP[facility] C 7 MEDICAL EXAMINATI IMAGING ON CHEST ASS SINGLE VIEW FRONTAL UNCLASSIF J3490 [facility] IED DRUGS 7 [facility] INC INC OPHTH 52250 SCIF[facility] SCIFRES MEDICAL 7 XM&EVAL COMPRE NEW PT 1/> VST ECHO 62349 EDMUND PATINO TTHRC R-T 6 MEDICAL 2D SERV W/WOM-MOD FOUNDATIO E COMPL N SPEC&COLR D IIV4 VACC 68476 [facility] S[facility] VIRUS 0.5 HLTH DEPT HLTH DEPT ML DOS LUIS ARMANDO LUIS ARMANDO FOR IM USE BLOOD 17640 [facility] MULBERRY COUNT 6 CARE KIMBERLYN COMPLETE ASSOCIATE AUTO&AUTO S DIFRNTL WBC IAADIADOO 17928 [facility]Y 6 [facility]ARE KIM[facility] STREPTOCO ASSOCIATE CCUS S GROUP A COLLECTIO 61135 [facility] MUL[facility]ERRY N 6 CARE KIM[facility] CAPILLARY ASSOCIATE BLOOD S SPECIMEN IAADIADOO 70546 [facility] MULBERRY 6 CARE KIMBERLYN INFLUENZA ASSOCIATE S ECG [address] [facility] ROUTINE 6 QUE ECG W/LEAST PHYSICIAN 12 LDS S W/I&R RADEX 04004 [place] ALFREDO WRIST 6 MEDICAL NGUYEN COMPLETE IMAGING MINIMUM 3 ASS VIEWS EPHYS EVL 45342 [facility] TRNSPTL 6 QUE THO TX ATRIAL FIB PHYSICIAN ISOLAT S PULM VEIN ANES 05267 ANESTHESI KEITH CARDIAC 6 A GROUP ELECTROPH PRACTICE YSIOL STDY W/RF ABLATION INTRACARD 83564 [facility] IAC 6 QUE THO ELECTROPH YSIOLOGIC PHYSICIAN 3D S MAPPING INTRACARD 16552 [facility] ECHOCARD 6 QUE THO W/THER/DX PHYSICIAN IVNTJ S INCL IMG S&I ECG [address]10 ST HEEB CHR ROUTINE 6 QUE ECG MED CTR W/LEAST 12 LDS I&R ONLY BRNCDILAT 88135 [facility] RSPSE 6 [facility] SPMTRY INC INC PRE&POST- BRNCDILAT ADMN GAS 70746 [facility] DILUT/WAS 6 [facility] HOUT LUNG INC INC VOL W/WO DISTRIB VENT&[place] [address] [facility] DIFFUSING 6 [facility] CAPACITY INC INC ECG 21614 [facility] ROUTINE 6 PHYSICIAN MAT ECG S GROUP W/LEAST 12 LDS I&R ONLY ECG 04881 [facility] ROUTINE 6 PHYSICIAN MAT ECG S GROUP W/LEAST 12 LDS I&R ONLY RADIOLOGI 54064 [facility] ALL C EXAM 6 MEDICAL CHEST 2 IMAGING VIEWS ASS FRONTAL&L ATERAL ECG 87122 [facility] HARP JR ROUTINE 6 [facility] W/LEAST P 12 LDS I&R ONLY CV STRS 86688 [facility] FALLUJI TST 6 PHYSICIAN XERS&/OR S GROUP RX CONT ECG W/O I&R COLLECTIO 43329 [facility] ST[facility] N VENOUS 6 [facility]OSP BLOOD INC INC VENIPUNCT URE CREATINE 87775 [facility] KINASE 6 [facility] [place] [address] [facility] TROPONIN 6 [facility] QUANTITAT INC INC MANUEL OBSERVATI 48147 FAMILY OWENFLEET ON/INPATI 6 CARE R H ENT [facility] S CARE 50 MINUTES CREATINE 69858 [facility] STALLWORTH KINASE MB 6 [facility] HOSP FRACTION INC INC ONLY HOSPITAL G0378 [facility] OBSERVATI 6 [facility] ON INC INC SERVICE PER HOUR COMPREHEN 02379 [facility] SIVE 6 [facility] [place] [address] [facility] THYROXINE 6 [facility] TOTAL INC INC RADIOLOGI 28389 [facility] STALLWORTH C 6 [facility] EXAMINATI INC INC [place] [address] BASIMRUI STALLWORTH THYROID 6 [facility] STIMULATI INC INC NG [facility] G0378 BASIM BASIM OBSERVATI 6 [facility] ON INC INC SERVICE PER HOUR CREATINE 92975 BASIMRUI STALLWORTH KINASE MB 6 [facility] FRACTION INC INC ONLY BLOOD 67686 BASIMRUI COONON COUNT 6 [facility] COMPLETE INC INC AUTO&AUTO DIFRNTL WBC THYROID 68565 [facility] HORM 6 [facility] UPTK/THYR INC [place] [address] [facility] TROPONIN 6 [facility] [place] [address] [facility] MAGNESIUM 6 [facility] [place] [address] [facility] PHOSPHORU 6 [facility] S INC INC INORGANIC CREATINE 66431 [facility] KINASE 6 [facility] H[facility] TOTAL INC INC ECG 54513 [facility] ROUTINE 6 [facility] ECG INC INC W/LEAST 12 LDS TRCG ONLY W/O I&R COLLECTIO 65121 [facility] STALLWORTH N VENOUS 6 [facility]OS[facility] BLOOD INC INC VENIPUNCT URE ECG 06596 [facility] MUÑOZ ROUTINE 6 [facility] W/LEAST P 12 LDS I&R ONLY ECHO 55611 [facility] STALLWORTH TTHRC R-T 6 [facility]OS[facility] 2D INC INC W/WOM-MOD E COMPL SPEC&COLR D 98118 [facility] EXTREMITY 6 MEDICAL NGUYEN NON-VASC IMAGING ASS REAL-TIME IMG LMTD TECHNETIU A9503 [facility] Fontana TC-99M 6 [facility]OS[facility] MEDRONATE INC INC DX UP TO 30 MCI BONE 18909 [facility] STALLWORTH &/JOINT 6 [facility] IMAGING INC INC WHOLE BODY UNCLASSIF J3490 [facility] IED DRUGS 6 [facility] INC INC RADEX 75500 [place] [facility] ALL ANKLE 6 MEDICAL COMPLETE IMAGING MINIMUM 3 ASS VIEWS RADEX 60008 [place] [facility] ALL FOOT 6 MEDICAL COMPLETE IMAGING MINIMUM 3 ASS VIEWS RADIOLOGI 01457 [facility] C 6 MEDICAL NGUYEN EXAMINATI IMAGING ON TIBIA ASS & FIBULA 2 VIEWS Encounters Encounter Start End Date Code Location Performer Type Date [facility] - 7 7 [facility] OUTPATIEN INC T OFFICE 72882 [place] OUT[facility] 7 7 [facility] T VISIT 5 INC MINUTES HOSPITAL [facility] - 7 7 [facility] OUTPATIEN INC T HOSPITAL [facility] - 7 7 [facility] OUTPATIEN INC T EMERGENCY 12236 [place] ELDER 7 7 PHYSICIAN JR ESCALANTE S, PLLC T VISIT HIGH/URGE NT SEVERITY OFFICE 78631 [facility] FRYMAN OUTPATIEN 6 6 PHYSICIAN T VISIT GROUP 25 MINUTES OFFICE 86173 [facility] MULBERRY OUTPATIEN 6 6 CARE KIMBERLYN T VISIT ASSOCIATE [address]ES [address] [facility] OUTPATIEN 6 6 QUE T VISIT 15 PHYSICIAN MINUTES S OFFICE 13808 [facility] MUL[facility]ERRY OUTPATIEN 6 6 CARE KIMBERLYN T VISIT ASSOCIATE 15 S MINUTES OFFICE 58936 [facility] CROWDY OUTPATIEN 6 6 CARE CRI T VISIT ASSOCIATE 15 S MINUTES OFFICE 82294 [facility] TONEY OUTPATIEN 6 6 PHYSICIAN MAT T VISIT S GROUP 40 MINUTES HOSPITAL BASIM - 6 6 MEM HOS[facility] OUTPATIEN INC T OFFICE 49018 [facility] TONEY OUTPATIEN 6 6 PHYSICIAN MAT T VISIT S GROUP 40 MINUTES EMERGENCY 18989 [place] TATE DEPT 6 6 PHYSICIAN ELIZABETH VISIT S, PLLC HIGH SEVERITY& THREAT FUNCJ OFFICE 31227 [facility] TONEY OUTPATIEN 6 6 PHYSICIAN MAT T VISIT S GROUP 25 MINUTES OFFICE 19372 [facility] LEDESMA OUTPATIEN 6 6 PHYSICIAN T VISIT GROUP 15 MINUTES EMERGENCY 96551 [facility] DEPT 6 6 MEM H[facility] VISIT INC HIGH SEVERITY& THREAT [facility] BASIM - 6 6 MEM [facility] OUTPATIEN INC T OFFICE 25949 [facility] MULBERRY OUTPATIEN 6 6 CARE KIMBERLYN T VISIT ASSOCIATE 15 S MINUTES OFFICE 56547 [facility] MUL[facility]ERRY OUTPATIEN 6 6 CARE KIMBERLYN T VISIT ASSOCIATE 15 S MINUTES HOSPITAL BASIM - 6 6 MEM H[facility] OUTPATIEN INC T EMERGENCY 69554 [place] QUIROGA 6 6 PHYSICIAN U MORENO DEPARTMEN S, [facility] T VISIT MODERATE SEVERITY EMERGENCY 85687 [facility] 6 6 MEM [facility] DEPARTMEN INC T VISIT LOW/MODER SEVERITY HOSPITAL [facility] - 6 6 [facility] OUTPATIEN INC T OFFICE 04743 [facility] MULBERRY OUTPATIEN 6 6 CARE KIMBERLYN T VISIT ASSOCIATE 15 S MINUTES OFFICE 52929 [facility] SALTER TER OUTPATIEN 5 5 PHYSICIAN T VISIT S GROUP 10 MINUTES
--- OUTSIDE RECORDS SUMMARY | 2017-07-05 11:12 | External Medical Summary Rpt ---
Author Author SCOTTCORI Gomes, [employer] Organization [employer] Address Unknown Phone Unavailable Results ELECTROPHYSIOLOGY PROCEDURE Observa Value Referen Units Interpr Notes Date ti ce etation Range This is No No No No Mar 29 a informa informa informa informa 2016 summary tion in tion in tion in tion in 12:52 source source source source PM report. data data data data The complet e report is availab le in the patient 's medical record. If you cannot access the medical record, please contact the sending organiz ation for a detaile d fax or copy.\. 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\.br\ Success ful slow pathway ablatio n with loss of dual AV ezra physiol ogy\.br \post ablatio n\.br\ No inducib le tachyca rdia on isuprel at end of procedu re\.br\ Normal H-V interva l\.br\ Retrogr collins AV ezra conduct ion is present TSH Observa Value Referen Units Interpr Notes Date ti ce etation Range Thyrotr 1.440 0.270 - mcIU/mL No No Mar 29 opin 4.200 informa informa 2016 [Units/ tion in tion in 11:09 volume] source source AM in data data Serum or Plasma Auto Diff Observa Value Referen Units Interpr Notes Date ti ce etation Range Neutrop 54.2 No % No No Mar 29 hils informa informa informa 2016 [#/volu tion in tion in tion in 10:36 me] in source source source AM Blood data data data by Automat ed count Lymphoc 36.1 No % No No Mar 29 ytes informa informa informa 2016 [#/volu tion in tion in tion in 10:36 me] in source source source AM Blood data data data by Automat ed count Monocyt 7.2 No % No No Roberto 6 es informa informa informa 2017 [#/volu tion in tion in tion in 10:36 me] in source source source AM Blood data data data by Automat ed count Eos 1.5 No % No No Mar 6 Percent informa informa informa 2017 tion in tion in tion in 10:36 source source source AM data data data Baso 1.0 No % No No Mar 6 Percent informa informa informa 2017 tion in tion in tion in 10:36 source source source AM data data data Neut# 3.7 1.8 - x10(3)/ No No Mar 6 7.7 mcL informa informa 2017 tion in tion in 10:36 source source AM data data Lymph# 2.5 0.6 - x10(3)/ No No Mar 29 4.8 mcL informa informa 2017 tion in tion in 10:36 source source AM data data Ralls# 0.5 0.0 - x10(3)/ No No Mar 29 1.3 mcL informa informa 2017 tion in tion in 10:36 source source AM data data Eos# 0.1 0.0 - x10(3)/ No No Mar 6 0.5 mcL informa informa 2017 tion in tion in 10:36 source source AM data data Baso# 0.1 0.0 - x10(3)/ No No Mar 29 0.2 mcL informa informa 2017 tion in tion in 10:36 source source AM data data CBC Observa Value Referen Units Interpr Notes Date tion ce etation Range Do not repeat if done in the past 10 days. LEUKOCY 6.9 4.0 - x10(3)/ No No Mar 29 SIERRA 11.0 mcL informa informa 2017 tion in tion in 10:36 source source AM data data Erythro 4.73 4.30 - x10(6)/ No No Mar 29 cytes 5.81 mcL informa informa 2016 [#/volu tion in tion in 10:36 me] in source source AM Blood data data by Automat ed count Hemoglo 14.1 13.5 - gm/dL No No Mar 29 bin 17.1 informa informa 2017 [Mass/v tion in tion in 10:36 olume] source source AM in data data Blood Hematoc 41.3 38.9 - % No No Mar 29 rit 51.6 informa informa 2016 [Volume tion in tion in 10:36 source source AM Fractio data data n] of Blood by Automat ed count Erythro 87.3 82.5 - fL No No Mar 29 cyte 99.8 informa informa 2017 mean tion in tion in 10:36 corpusc source source AM ular data data volume [Entiti c volume] by Automat ed count Erythro 29.8 27.0 - pg No No Mar 29 cyte 34.3 informa informa 2017 mean tion in tion in 10:36 corpusc source source AM ular data data hemoglo bin [Entiti c mass] by Automat ed count Erythro 34.1 32.1 - gm/dL No No Mar 29 cyte 35.3 informa informa 2017 mean tion in tion in 10:36 corpusc source source AM ular data data hemoglo bin concent ration [Mass/v olume] by Automat ed count Erythro 13.0 11.5 - % No No Mar 29 cyte 15.0 informa informa 2017 distrib tion in tion in 10:36 ution source source AM width data data [Ratio] by Automat ed count Platele 233 144 - x10(3)/ No No Mar 29 ts 423 mcL informa informa 2016 [#/volu tion in tion in 10:36 me] in source source AM Blood data data by Automat ed count MPV 8.7 6.8 - fL No No Mar 29 10.8 informa informa 2017 tion in tion in 10:36 source source AM data data CBC W Auto Differential panel in Blood Observa Value Referen Units Interpr Notes Date tion ce etation Range Basophils 0 - 0.2 K/MM3 Normal No Mar 03 informati 2016 2:55 [#/volume on in PM ] in source Blood by data Automated count Basophils 0.1 - 2.0 % Normal No Mar 03 / informati 2017 2:55 leukocyte on in PM s in source Blood by data Automated count Eosinophi 0.0 - 0.4 K/mm3 Normal No Mar 03 ls informati 2016 2:55 [#/volume on in PM ] in source Blood by data Automated count Eosinophi 0.1 - % Normal No Mar 03 ls/100 12.0 informati 2016 2:55 leukocyte on in PM s in source Blood by data Automated count Granulocy 1.3 - 8.0 K/mm3 Normal No Feb 10 sierra informati 2016 2:55 [#/volume on in PM ] in source Blood by data Automated count Granulocy 37.0 - % Normal No Mar 03 sierra/100 80.0 informati 2016 2:55 leukocyte on in PM s in source Blood by data Automated count Hematocri 42.0 - % Normal No Mar 03 t [Volume 52.0 informati 2016 2:55 on in PM Fraction] source of Blood data Hemoglobi 14.1 - g/dL Normal No Mar 03 n 18.0 informati 2016 2:55 [Mass/vol on in PM ume] in source Blood data Lymphocyt 0.7 - 4.5 K/mm3 Normal No Mar 03 es informati 2016 2:55 [#/volume on in PM ] in source Unspecifi data ed specimen by Automated count Lymphocyt 10 - 50 % Normal No Mar 03 es informati 2016 2:55 [#/volume on in PM ] in source Unspecifi data ed specimen by Automated count Erythrocy 27 - 31.2 pg Normal No Mar 03 te mean informati 2016 2:55 corpuscul on in PM ar source hemoglobi data n [Entitic mass] Erythrocy 31.8 - g/dl Normal No Mar 03 te mean 35.4 informati 2016 2:55 corpuscul on in PM ar source hemoglobi data n concentra tion [Mass/vol ume] by Automated count Erythrocy 82.2 - fl Normal No Mar 03 te mean 97.8 informati 2016 2:55 corpuscul on in PM ar volume source [Entitic data volume] by Automated count Monocytes 0.1 - 1.0 K/mm3 Normal No Feb 10 informati 2017 2:55 [#/volume on in PM ] in source Blood by data Automated count Monocytes 1.7 - 9.3 % Normal No Feb 10 / informati 2017 2:55 leukocyte on in PM s in source Blood by data Automated count Platelet 7.4 - fl Low No Mar 03 mean 10.4 informati 2016 2:55 volume on in PM [Entitic source volume] data in Blood by Automated count Platelets 142 - 424 K/mm3 Normal No Feb 10 informati 2017 2:55 [#/volume on in PM ] in source Blood data Erythrocy 4.6 - 6.2 M/mm3 Normal No Feb 10 sierra informati 2016 2:55 [#/volume on in PM ] in source Amniotic data fluid Erythrocy 11.5 - % Normal No Feb 10 te 17.5 informati 2016 2:55 distribut on in PM ion width source [Entitic data volume] by Automated count Leukocyte 4.8 - K/MM3 Normal No Feb 10 s 10.8 informati 2016 2:55 [#/volume on in PM ] in source Blood data EK EKG 12 LEAD Observa Value Referen Units Interpr Notes Date ti ce etation Range Station No No No No Jul 13 simone ECG informa informa informa informa 2016 tion in tion in tion in tion in 12:24 Study\. source source source source PM br\St. data data data data [facility] d\.br\I nterpre tive Stateme nts\.br \SINUS RHYTHM\ .br\Reema ctronic ally Signed On 016 20:13:4 6 EDT by Saul Jorge MD ELECTROPHYSIOLOGY PROCEDURE Observa Value Referen Units Interpr Notes Date ti ce etation Range This is No No No No Jul 13 a informa informa informa informa 2016 summary tion in tion in tion in tion in 11:40 source source source source AM report. data data data data The complet e report is availab le in the patient 's medical record. If you cannot access the medical record, please contact the sending organiz ation for a detaile d fax or copy.\. br\\.br \ Paroxys mal atrial fibrill ation\. br\ Success ful pulmona ry vein antral isolati on\.br\ LSPV AT -> AF ACT POC Observa Value Referen Units Interpr Notes Date ti ce etation Range ACT-LR 296 89 - second( High No Jul 13 169 s) inform2015 tion in 10:43 source AM data ACT POC Observa Value Referen Units Interpr Notes Date ti ce etation Range ACT-LR 381 89 - second( High No Jul 13 169 s) informa 2015 tion in 10:16 source AM data ACT POC Observa Value Referen Units Interpr Notes Date tion ce etation Range ACT-LR 291 89 - second( High No Jun 20 169 s) informa 2016 tion in 9:58 AM source data ACT POC Observa Value Referen Units Interpr Notes Date tion ce etation Range ACT-LR 367 89 - second( High No Oct 20 169 s) informa 2016 tion in 9:39 AM source data ACT POC Observa Value Referen Units Interpr Notes Date tion ce etation Range ACT-LR 299 89 - second( High No Oct 20 169 s) informa 2016 tion in 9:21 AM source data TSH Observa Value Referen Units Interpr Notes Date tion ce etation Range Thyrotr 2.540 0.270 - mcIU/mL No No Jun 20 opin 4.200 informa informa 2016 [Units/ tion in tion in 8:19 AM volume] source source in data data Serum or Plasma Auto Diff Observa Value Referen Units Interpr Notes Date tion ce etation Range Neutrop 58.6 No % No No Jul 13 hils informa informa informa 2016 [#/volu tion in tion in tion in 7:48 AM me] in source source source Blood data data data by Automat ed count Lymphoc 31.3 No % No No Jul 13 ytes informa informa informa 2016 [#/volu tion in tion in tion in 7:48 AM me] in source source source Blood data data data by Automat ed count Monocyt 8.0 No % No No Jul 13 es informa informa informa 2016 [#/volu tion in tion in tion in 7:48 AM me] in source source source Blood data data data by Automat ed count Eos 1.2 No % No No Jun 20 Percent informa informa informa 2016 tion in tion in tion in 7:48 AM source source source data data data Baso 0.9 No % No No Jun 20 Percent informa informa informa 2016 tion in tion in tion in 7:48 AM source source source data data data Neut# 4.8 1.8 - x10(3)/ No No Jul 13 7.7 mcL informa informa 2016 tion in tion in 7:48 AM source source data data Lymph# 2.6 0.6 - x10(3)/ No No Jun 20 4.8 mcL informa informa 2016 tion in tion in 7:48 AM source source data data Ralls# 0.7 0.0 - x10(3)/ No No Jun 20 1.3 mcL informa informa 2016 tion in tion in 7:48 AM source source data data Eos# 0.1 0.0 - x10(3)/ No No Jun 20 0.5 mcL informa informa 2016 tion in tion in 7:48 AM source source data data Baso# 0.1 0.0 - x10(3)/ No No Jun 20 0.2 mcL informa informa 2016 tion in tion in 7:48 AM source source data data CBC Observa Value Referen Units Interpr Notes Date tion ce etation Range Do not repeat if done in the past 10 days. LEUKOCY 8.2 4.0 - x10(3)/ No No Jun 20 SIERRA 11.0 mcL informa informa 2016 tion in tion in 7:48 AM source source data data Erythro 4.68 4.30 - x10(6)/ No No Jul 13 cytes 5.81 mcL informa informa 2015 [#/volu tion in tion in 7:48 AM me] in source source Blood data data by Automat ed count Hemoglo 14.1 13.5 - gm/dL No No Jul 13 bin 17.1 informa informa 2015 [Mass/v tion in tion in 7:48 AM olume] source source in data data Blood Hematoc 40.2 38.9 - % No No Jul 13 rit 51.6 informa informa 2016 [Volume tion in tion in 7:48 AM source source Fractio data data n] of Blood by Automat ed count Erythro 86.0 82.5 - fL No No Jul 13 cyte 99.8 informa informa 2016 mean tion in tion in 7:48 AM corpusc source source ular data data volume [Entiti c volume] by Automat ed count Erythro 30.1 27.0 - pg No No Jul 13 cyte 34.3 informa informa 2016 mean tion in tion in 7:48 AM corpusc source source ular data data hemoglo bin [Entiti c mass] by Automat ed count Erythro 35.0 32.1 - gm/dL No No Jul 13 cyte 35.3 informa informa 2016 mean tion in tion in 7:48 AM corpusc source source ular data data hemoglo bin concent ration [Mass/v olume] by Automat ed count Erythro 13.4 11.5 - % No No Jul 13 cyte 15.0 informa informa 2016 distrib tion in tion in 7:48 AM ution source source width data data [Ratio] by Automat ed count Platele 285 144 - x10(3)/ No No Jul 13 ts 423 mcL informa informa 2016 [#/volu tion in tion in 7:48 AM me] in source source Blood data data by Automat ed count MPV 7.8 6.8 - fL No No Jul 13 10.8 informa informa 2016 tion in tion in 7:48 AM source source data data
--- OUTSIDE RECORDS SUMMARY | 2017-07-05 11:12 | External Medical Summary Rpt ---
[...] in 10:36 source source AM data data Adair# 0.5 0.0 - x10(3)/ No No Mar [...] in 7:48 AM source source data data Adair# 0.7 0.0 - x10(3)/ No No Jun [...]
--- OUTSIDE RECORDS SUMMARY | 2017-07-05 11:12 | External Medical Summary Rpt | CCD ---
Demographics Preferred Language Egyptian Marital Status Unknown Mandaen Affiliation Unknown Race Unknown Ethnic Group Unknown Author Author , [facility]ER MARTINS Address Unknown Phone Immunization No patient found.
--- OUTSIDE RECORDS SUMMARY | 2017-07-05 11:12 | External Medical Summary Rpt | CCD ---
Demographics Preferred Language Belizean Marital Status Unknown Restoration Affiliation Unknown Race Unknown Ethnic Group Unknown Author Author , ELIEZER MARTINS Address Unknown Phone Immunization No patient found.
== END 2017-06-26 22:52 | disposition home or self-care (01) ==
LOC: ER 21:32
DX: S05.02XA Injury of conjunctiva and corneal abrasion without foreign body, left eye, initial encounter (principal); I10 Essential (primary) hypertension; J45.909 Unspecified asthma, uncomplicated; K21.9 Gastro-esophageal reflux disease without esophagitis; Z87.891 Personal history of nicotine dependence